=== PATIENT | male | born 1970 | race African-American/Black ===

== ENCOUNTER 2016-10-19 13:29 | Emergency (ER) | payer OTHER ==
[2016-10-19 13:57] VITALS: BP 151/97; PULSE 111; TEMP 98.1; BMI 33.7
[2016-10-19] MEDS ORDERED: KETOROLAC TROMETHAMINE 60 MG/2 ML VIAL IM ONE (14:58)
[2016-10-19] MEDS ORDERED: diazePAM 5 MG TABLET PO ONE (14:59)
[2016-10-19] MEDS ORDERED: KETOROLAC TROMETHAMINE 60 MG/2 ML VIAL ONE (15:03)
[2016-10-19] MEDS ORDERED: diazePAM 5 MG TABLET ONE (15:03)
[2016-10-19 15:29] LABS: BASOPHIL 1.2 % (0-2.0); EOSINOPHIL 3.1 % (0-4.5); MCH 29.9 pg (25.7-33.7); MCHC 33.3 g/dl (32.0-35.9); MEAN PLT VOLUME 10.1 fl (7.5-11.1); NEUTROPHILS 54.1 % (42.8-82.8); PLATELET COUNT 259 K/MM3 (134-434); RDW 13.2 % (11.9-15.9); WHITE BLOOD COUNT 11.3 K/mm3 (4.0-10.0)
[2016-10-19 15:51] LABS: CALCIUM 9.4 mg/dL (8.5-10.1); CREATININE 0.9 mg/dL (0.7-1.3)
[2016-10-19 15:57] LABS: URINE APPEARANCE CLEAR; URINE BILIRUBIN NEGATIVE (NEGATIVE); URINE BLOOD NEGATIVE (NEGATIVE); URINE COLOR LTYELLOW; URINE GLUCOSE (UA) 3+ (NEGATIVE); URINE KETONE TRACE (NEGATIVE); URINE LEUK ESTERASE NEGATIVE (NEGATIVE); URINE NITRITE NEGATIVE (NEGATIVE); URINE PROTEIN NEGATIVE (NEGATIVE); URINE UROBILINOGEN NEGATIVE E.U./dl (0.2-1.0)
[2016-10-19 16:12] LABS: PLATELET ESTIMATE ADEQUATE (NORMAL)
[2016-10-19] MEDS ORDERED: OXYCODONE/APAP 5/325MG COMBO TABLET PO ONE (16:52)
[2016-10-19] MEDS ORDERED: OXYCODONE/APAP 5/325MG COMBO TABLET ONE (16:58)
--- NOTE | 2016-10-19 17:15 | PDOC ---
History of Present Illness - General Chief Complaint: Back Pain Stated Complaint: BACK PAIN Time Seen by Provider: 10/19/16 14:05 History Source: Patient Exam Limitations: No Limitations - History of Present Illness Occurred: reports: last week Severity: reports: severe Pain Location: reports: back. denies: lower extremity, pelvis Method of Injury: Yes: other (NO TRAUMA) Past History - Past Medical History Allergies/Adverse Reactions: Allergies Allergy/AdvReac Type Severity Reaction Status Date / Time No Known Allergies Allergy Verified 10/19/16 13:44 Home Medications: Ambulatory Orders Enalapril Maleate [Vasotec -] 10 mg PO DAILY 10/06/14 Glyburide/Metformin HCl [Glyburide-Metformin 5-500 mg] 1 each PO BID 10/06/14 Simvastatin [Zocor -] 20 mg PO HS 10/06/14 Albuterol Sulfate Inhaler - [Ventolin HFA Inhaler -] 1 - 2 inh PO Q4H PRN Acetaminophen W/ Codeine #3 [Tylenol # 3 -] 1 tab PO Q6H #20 tablet 06/11/15 Insulin Glargine,Hum.rec.anlog [Lantus Solostar PEN -] 35 units 10/19/16 Diabetes: Yes HTN: Yes Hypercholesterolemia: Yes - Psycho/Social/Smoking Cessation Hx Anxiety: No Suicidal Ideation: No Smoking History: Current every day smoker Have you smoked in the past 12 months: Yes Number of Cigarettes Smoked Daily: 15 Information on smoking cessation initiated: No 'Breaking Loose' booklet given: 06/09/15 Hx Alcohol Use: No Drug/Substance Use Hx: No Substance Use Type: None Review of Systems - Review of Systems Constitutional: No: Chills, Fever, Malaise Respiratory: No: Symptoms reported, Cough Cardiac (ROS): No: Symptoms Reported ABD/GI: No: Symptoms Reported : No: Symptoms Reported Musculoskeletal: No: Symptoms Reported Integumentary: No: Symptoms Reported Neurological: No: Symptoms reported, Numbness, Paresthesia *Physical Exam - Vital Signs Last Vital Signs Temp Pulse Resp BP Pulse Ox 98.1 F 111 H 19 151/97 96 10/19/16 13:45 10/19/16 13:45 10/19/16 13:45 10/19/16 13:45 10/19/16 13:45 - Physical Exam General Appearance: Yes: Appropriately Dressed HEENT: negative: TMs Normal, Pharynx Normal Neck: negative: Tender, Rigid, Supple, Lymphadenopathy (R), Lymphadenopathy (L) Respiratory/Chest: positive: Lungs Clear Cardiovascular: negative: Regular Rhythm, Regular Rate, Murmur Musculoskeletal: positive: Other ( TENDER TO AREA OF L4-L5) Extremity: negative: Normal Capillary Refill Integumentary: negative: Normal Color, Dry, Warm ED Treatment Course - LABORATORY CBC & Chemistry Diagram: 10/19/16 15:10 10/19/16 15:10 - ADDITIONAL ORDERS Additional order review: Laboratory Results 10/19/16 10/19/16 15:10 15:10 Sodium 136 Potassium 4.3 Chloride 102 Carbon Dioxide 26 Anion Gap 8 BUN 14 D Creatinine 0.9 D Random Glucose 241 H Calcium 9.4 Urine Color Ltyellow Urine Appearance Clear Urine pH 5.0 Ur Specific [place] 1.032 Urine Protein Negative Urine Glucose (UA) 3+ H Urine Ketones Trace H Urine Blood Negative Urine Nitrite Negative Urine Bilirubin Negative Urine Urobilinogen Negative Ur Leukocyte Esterase Negative 10/19/16 15:10 RBC 5.67 H MCV 90.0 MCHC 33.3 RDW 13.2 MPV 10.1 Neutrophils % 54.1 Lymphocytes % 33.0 D Monocytes % 8.6 Eosinophils % 3.1 Basophils % 1.2 - Medications Given in the ED: ED Medications Discontinued Medications Generic Name Dose Route Start Last Admin Trade Name Freq PRN Reason Stop Dose Admin Diazepam 5 mg 10/19/16 14:59 10/19/16 15:06 Valium - PO 10/19/16 15:00 5 mg ONCE ONE Administration Ketorolac Tromethamine 60 mg 10/19/16 14:58 10/19/16 15:06 Toradol Injection - IM 10/19/16 14:59 60 mg ONCE ONE Administration Oxycodone/Acetaminophen 2 combo 10/19/16 16:52 10/19/16 16:57 Percocet 5/325 - PO 10/19/16 16:53 2 combo ONCE ONE Administration Medical Decision Making - Medical Decision Making 10/19/16 17:13 SLIGHT BETTER POST TORADOL, VALIUM AND PERCOCET IN ED; WILL REFER TO ORTHO FOR CLOSE FOLLOW UP 10 DAYS *DC/Admit/Observation/Transfer Diagnosis at time of Disposition: Hyperglycemia due to type 2 diabetes mellitus Qualifiers: Diabetes mellitus fci insulin use: unspecified intermediate school teacher insulin use status Qualified Code(s): E11.65 - Type 2 diabetes mellitus with hyperglycemia Low back pain Qualifiers: Chronicity: acute Back pain laterality: unspecified Sciatica presence: without sciatica Qualified Code(s): M54.5 - Low back pain - Discharge Dispostion Disposition: HOME Condition at time of disposition: Stable Admit: No - Referrals Referrals: María Kimble MD [Primary Care Provider] - Seth Bernal MD [Staff Physician] - - Patient Instructions Additional Instructions: PLEASE FOLLOW UP WITH DR SIMON FOR BACK PAIN AND GLUCOSE CONTROL, YOU MAY NEED AN MRI - Post Discharge Activity Work/School Note: Back to Work
== END 2016-10-19 17:56 | disposition home or self-care (01) ==
LOC: JER 13:29 → JERFT 13:29
PROC: 3E0333Z Introduction of Anti-inflammatory into Peripheral Vein, Percutaneous Approach (ICD-10-PCS; principal; 2016-10-19)
DX: M54.5 Low back pain (principal); E11.65 Type 2 diabetes mellitus with hyperglycemia; Z79.4 Long term (current) use of insulin; Z79.84 Long term (current) use of oral hypoglycemic drugs; I10 Essential (primary) hypertension; E78.00 Pure hypercholesterolemia, unspecified
CPT/HCPCS: 36415; 80048; 81003; 85025; 96374; 99281-25

== ENCOUNTER 2016-10-25 16:13 | Emergency (ER) | payer OTHER ==
[2016-10-25] MEDS ORDERED: diazePAM CARPU-JECT 10 MG/2 ML DISP.SYRIN IVPUSH ONE (16:38)
[2016-10-25] MEDS ORDERED: KETOROLAC TROMETHAMINE 30 MG/1 ML VIAL IVPUSH ONE (16:38)
[2016-10-25] MEDS ORDERED: KETOROLAC TROMETHAMINE 30 MG/1 ML VIAL ONE (16:38)
[2016-10-25] MEDS ORDERED: diazePAM CARPU-JECT 10 MG/2 ML DISP.SYRIN ONE (16:38)
--- NOTE | 2016-10-25 16:38 | PDOC ---
History of Present Illness - General History Source: Patient, EMS, Old Records Exam Limitations: No Limitations - History of Present Illness Initial Comments: 10/25/16 16:57 The patient is a 46 year old male, with a significant past medical history of asthma, HTN, hyperlipidemia and diabetes, who presents to the emergency department via EMS with intermittent radiating left sided back pain for the past 2-3 weeks. The patient describes his back pain as sharp and reports that the pain intermittently radiates down his left leg. He reports that the back pain is exacerbated by any movement (sitting/standing/walking). The patient most recently visited this ED on 10/19/2016 for similar symptoms. The patient was given Toradol, Valium and Percocet for his back pain, with some relief. The patient was discharged home on pain medication and advised to follow up with orthopedics for possible outpatient imaging, but has not yet done so. The patient presents to the ED today because his back pain is persistent. The patient denies any trauma to the area or any recent heavy lifting. The patient denies fever, chills, nausea, vomiting, diarrhea, dysuria or any changes in urination. 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 The patient did not take his regular medications today. Allergies: None reported. Past Surgical History: None reported. Social History: Current everyday smoker (1 pack/2 days). Denies alcohol use. Reports marijuana use. PCP: Dr. Kimble <Sharon Patel - Last Filed: 10/25/16 19:46> - General History Source: Patient, EMS, Old Records Exam Limitations: No Limitations <Mary Block - Last Filed: 10/25/16 21:56> - General Chief Complaint: Back Pain Stated Complaint: SEVERE BACK PAIN Time Seen by Provider: 10/25/16 16:19 Past History <Sharon Patel - Last Filed: 10/25/16 19:46> - Past Medical History Diabetes: Yes HTN: Yes Hypercholesterolemia: Yes - Psycho/Social/Smoking Cessation Hx Anxiety: No Suicidal Ideation: No Smoking History: Current every day smoker Have you smoked in the past 12 months: Yes Number of Cigarettes Smoked Daily: 20 'Breaking Loose' booklet given: 06/09/15 Hx Alcohol Use: No Drug/Substance Use Hx: No Substance Use Type: None <Mary Block - Last Filed: 10/25/16 21:56> - Past Medical History Allergies/Adverse Reactions: Allergies Allergy/AdvReac Type Severity Reaction Status Date / Time No Known Allergies Allergy Verified 10/19/16 13:44 Home Medications: Ambulatory Orders Amlodipine Besylate [Norvasc -] 5 mg PO DAILY 10/25/16 Benazepril HCl 10 mg PO DAILY 10/25/16 Diazepam [Valium] 5 mg PO Q6H PRN #10 tablet MDD 4 10/25/16 Glyburide [Diabeta -] 5 mg PO DAILY@0700 10/25/16 Ibuprofen 800 mg PO TID 10/25/16 Insulin Glargine,Hum.rec.anlog [Lantus Solostar PEN (NF)] 0 units SQ HS Lidocaine 5% Patch [Lidoderm Patch -] 1 patch TP DAILY #7 patch 10/25/16 Linagliptin [Tradjenta] 5 mg PO DAILY 10/25/16 Oxycodone HCl/Acetaminophen [Percocet 5-325 mg Tablet] 1 tab PO Q6H 10/25/16 Simvastatin [Zocor -] 20 mg PO DAILY 10/25/16 Tizanidine HCl [Zanaflex] 4 mg PO TID 10/25/16 Review of Systems - Review of Systems Able to Perform ROS?: Yes Comments:: 10/25/16 16:58 GENERAL/CONSTITUTIONAL: No fever or chills. No weakness. HEAD, EYES, EARS, NOSE AND THROAT: No change in vision. No ear pain or discharge. No sore throat. CARDIOVASCULAR: No chest pain or shortness of breath. RESPIRATORY: No cough, wheezing, or hemoptysis. GASTROINTESTINAL: No nausea, vomiting, diarrhea or constipation. GENITOURINARY: No dysuria, frequency, or change in urination. MUSCULOSKELETAL: +Back pain, left leg pain. No joint swelling or pain. No neck pain. SKIN: No rash. NEUROLOGIC: No headache, vertigo, loss of consciousness, or change in strength/ sensation. ENDOCRINE: No increased thirst. No abnormal weight change. HEMATOLOGIC/LYMPHATIC: No anemia, easy bleeding, or history of blood clots. ALLERGIC/IMMUNOLOGIC: No hives or skin allergy. <Sharon Patel - Last Filed: 10/25/16 19:46> *Physical Exam - Vital Signs Last Vital Signs Temp Pulse Resp BP Pulse Ox 0/0 10/25/16 16:39 - Physical Exam Comments: 10/25/16 16:58 GENERAL: Awake, alert, and fully oriented, in no acute distress. HEAD: No signs of trauma. EYES: PERRLA, EOMI, sclera anicteric, conjunctiva clear. ENT: Auricles normal inspection, hearing grossly normal, nares patent, oropharynx clear without exudates. Moist mucosa. NECK: Normal ROM, supple, no lymphadenopathy, JVD, or masses. LUNGS: Breath sounds equal, clear to auscultation bilaterally. No wheezes, and no crackles. HEART: Regular rate and rhythm, normal S1 and S2, no murmurs, rubs or gallops. ABDOMEN: Soft, nontender, normoactive bowel sounds. No guarding, no rebound. No masses. MUSCULOSKELETAL: Point tenderness of the left lower lumbar sacral region. No spinal tenderness, no vertebral tenderness. EXTREMITIES: Normal range of motion, no edema. No clubbing or cyanosis. No cords, erythema, or tenderness. NEUROLOGICAL: Cranial nerves II through XII grossly intact. Normal speech, gait is deferred. SKIN: Warm, dry, normal turgor, no rashes or lesions noted. <Sharon Patel - Last Filed: 10/25/16 19:46> ED Treatment Course - LABORATORY CBC & Chemistry Diagram: 10/25/16 16:53 10/25/16 16:53 <Sharon Patel - Last Filed: 10/25/16 19:46> - LABORATORY CBC & Chemistry Diagram: 10/25/16 16:53 10/25/16 16:53 <Mary Block - Last Filed: 10/25/16 21:56> Medical Decision Making - Medical Decision Making 10/25/16 16:42 [id number] with history of hypertension, diabetes, asthma and high cholesterol who presents to the emergency department with progressively worsening lower back pain 2-1/2 weeks.differential diagnosiincludes but is not limited to: Sciatica, muscle spasm, disc herniation, nerve impingement, uncontrolled diabetes. Plan: 1. IV Valium and Toradol 2. Check labs 3. Observe and reevaluate <Mary Block - Last Filed: 10/25/16 21:56> *DC/Admit/Observation/Transfer - Attestations Scribe Attestion: 10/25/16 16:56 Documentation prepared by Sharon Patel, acting as medical claims representative for Mary Block MD. <Sharon Patel - Last Filed: 10/25/16 19:46> - Discharge Dispostion Admit: No - Attestations Physician Attestion: 10/25/16 16:44 I, Dr. Mary Block, attest that the scribes documentation that appears above has been prepared under my direction and personally reviewed by me in its entirety. I confirmed that the note above accurately reflects all work, treatment, procedures, and medical decision-making performed by me. <Mary Block - Last Filed: 10/25/16 21:56> Diagnosis at time of Disposition: Pain in lower back - Discharge Dispostion Disposition: HOME Condition at time of disposition: Stable - Prescriptions Prescriptions: Lidocaine 5% Patch [Lidoderm Patch -] 1 patch TP DAILY #7 patch Diazepam [Valium] 5 mg PO Q6H PRN #10 tablet MDD 4 PRN Reason: Pain - Referrals Referrals: María Kimble MD [Primary Care Provider] - - Patient Instructions Printed Discharge Instructions: DI for Low Back Pain Additional Instructions: You're being prescribed Lidoderm patch and Valium. Take 1 tablet of the Valium every 6 hours as needed for severe pain. Continue to need to take Percocet or Motrin as needed for pain as well. Follow-up with your primary care physician on Thursday. Return to the emergency department if her symptoms persist, worsen, or new symptoms arise.
[2016-10-25 16:42] VITALS: BMI 33.6
[2016-10-25 16:59] LABS: BASOPHIL 0.6 % (0-2.0); EOSINOPHIL 1.3 % (0-4.5); MCHC 33.5 g/dl (32.0-35.9); MEAN CELL VOLUME 89.5 fl (80-96); MEAN PLT VOLUME 9.6 fl (7.5-11.1); PLATELET COUNT 233 K/MM3 (134-434); RDW 13.3 % (11.9-15.9); WHITE BLOOD COUNT 11.1 K/mm3 (4.0-10.0)
[2016-10-25 17:32] VITALS: BP 124/74; PULSE 82; TEMP 98
[2016-10-25 17:47] LABS: ANION GAP 11 (8-16); CALCIUM 8.9 mg/dL (8.5-10.1); CO2 26 mmol/L (21-32); GLUCOSE,RANDOM 268 mg/dL (74-106); MAGNESIUM 1.8 mg/dL (1.8-2.4); PHOSPHOROUS 2.4 mg/dL (2.5-4.9)
[2016-10-25 18:46] LABS: ACETONE SERUM NEGATIVE (NEGATIVE)
[2016-10-25 19:51] LABS: URINE APPEARANCE CLEAR; URINE BILIRUBIN NEGATIVE (NEGATIVE); URINE BLOOD NEGATIVE (NEGATIVE); URINE COLOR LTYELLOW; URINE GLUCOSE (UA) 3+ (NEGATIVE); URINE KETONE NEGATIVE (NEGATIVE); URINE LEUK ESTERASE NEGATIVE (NEGATIVE); URINE NITRITE NEGATIVE (NEGATIVE); URINE PROTEIN NEGATIVE (NEGATIVE); URINE UROBILINOGEN NEGATIVE E.U./dl (0.2-1.0)
[2016-10-25] MEDS ORDERED: KETOROLAC TROMETHAMINE 60 MG/2 ML VIAL IM ONE (22:25)
[2016-10-25] MEDS ORDERED: KETOROLAC TROMETHAMINE 60 MG/2 ML VIAL ONE (22:26)
== END 2016-10-25 22:43 | disposition home or self-care (01) ==
LOC: JER 16:13
PROC: 3E0233Z Introduction of Anti-inflammatory into Muscle, Percutaneous Approach (ICD-10-PCS; principal; 2016-10-25)
PROC: 3E033NZ Introduction of Analgesics, Hypnotics, Sedatives into Peripheral Vein, Percutaneous Approach (ICD-10-PCS; 2016-10-25)
PROC: 3E0333Z Introduction of Anti-inflammatory into Peripheral Vein, Percutaneous Approach (ICD-10-PCS; 2016-10-25)
DX: M54.5 Low back pain (principal); I10 Essential (primary) hypertension; E11.9 Type 2 diabetes mellitus without complications; Z79.4 Long term (current) use of insulin; Z79.84 Long term (current) use of oral hypoglycemic drugs; E78.00 Pure hypercholesterolemia, unspecified; J45.909 Unspecified asthma, uncomplicated
CPT/HCPCS: 36415; 80048; 81003; 82009; 83735; 84100; 85025; 96372; 96374; 96375; 99283-25

== ENCOUNTER 2017-10-08 10:18 | Inpatient (IN) | payer OTHER ==
[2017-10-08] MEDS ORDERED: VANCOMYCIN 1,000 MG in DEXTROSE 5%-WATER - 250 ML IVPB ONE (11:49)
[2017-10-08] MEDS ORDERED: PIPERACILLIN/TAZOB 4.5 GM 4.5 GM/100 ML BAG IVPB ONE ×2 (11:49→12:08)
[2017-10-08] MEDS ORDERED: VANCOMYCIN 1 GRAM (PRE-DOCKED) 1,000 MG/250 ML BAG IVPB ONE ×2 (12:08)
--- NOTE | 2017-10-08 12:17 | PDOC ---
History of Present Illness - General History Source: Patient Exam Limitations: No Limitations - History of Present Illness Initial Comments: 10/08/17 12:43 The patient is a 47 year old male, with a significant past medical history of Asthma, DM, HTN, HLD who presents to the emergency department for evaluation of L toe infection. Patient reports cutting his toenails few days ago and since then has been noticing purulent drainage and foul smell to the greater L toe. Patient reports recent fluctuations in blood sugars (75-300s). Patient went to clinic today and was sent in for further evaluation of his wound. Patient denies any pain, trauma or injury to the toe. Patient denies fever, chills, Patient denies chest pain, headache or dizziness. Patient denies abdominal pain, nausea, vomit, diarrhea or constipation. Patient denies dysuria, frequency, urgency or hematuria. Patient denies sick contacts or recent travel. Allergies: Metformin Past surgical history: None Social history: None PCP: Dr. Kimble <Paulina Jj - Last Filed: 10/08/17 12:43> <Billy Grande - Last Filed: 10/08/17 14:09> - General Chief Complaint: Wound Infection Stated Complaint: INFECTED LT TOE Time Seen by Provider: 10/08/17 11:32 Past History <Paulina Jj - Last Filed: 10/08/17 12:43> - Past Medical History COPD: No DVT: No Diabetes: Yes HTN: Yes Hypercholesterolemia: Yes - Suicide/Smoking/Psychosocial Hx Smoking History: Current every day smoker Have you smoked in the past 12 months: Yes Number of Cigarettes Smoked Daily: 10 Information on smoking cessation initiated: Yes 'Breaking Loose' booklet given: 10/08/17 Hx Alcohol Use: No Drug/Substance Use Hx: No Substance Use Type: None <Billy Grande - Last Filed: 10/08/17 14:09> - Past Medical History Allergies/Adverse Reactions: Allergies Allergy/AdvReac Type Severity Reaction Status Date / Time metformin AdvReac Verified 10/08/17 10:21 Home Medications: Ambulatory Orders Amlodipine Besylate [Norvasc -] 5 mg PO DAILY 10/25/16 Benazepril HCl 10 mg PO DAILY 10/25/16 Diazepam [Valium] 5 mg PO Q6H PRN #10 tablet MDD 4 10/25/16 Glyburide [Diabeta -] 5 mg PO DAILY@0700 10/25/16 Ibuprofen 800 mg PO TID 10/25/16 Insulin Glargine,Hum.rec.anlog [Lantus Solostar PEN (NF)] 0 units SQ HS Lidocaine 5% Patch [Lidoderm Patch -] 1 patch TP DAILY #7 patch 10/25/16 Linagliptin [Tradjenta] 5 mg PO DAILY 10/25/16 Oxycodone HCl/Acetaminophen [Percocet 5-325 mg Tablet] 1 tab PO Q6H 10/25/16 Simvastatin [Zocor -] 20 mg PO DAILY 10/25/16 Tizanidine HCl [Zanaflex] 4 mg PO TID 10/25/16 Review of Systems - Review of Systems Constitutional: No: Chills, Fever Respiratory: No: Cough, Shortness of Breath Cardiac (ROS): No: Chest Pain Musculoskeletal: Yes: Joint Pain, Muscle Pain Integumentary: Yes: See HPI Neurological: No: Tingling, Weakness All Other Systems: Reviewed and Negative <Billy Grande - Last Filed: 10/08/17 14:09> *Physical Exam - Vital Signs Last Vital Signs Temp Pulse Resp BP Pulse Ox 98.4 F 106 H 18 126/85 100 10/08/17 10:22 10/08/17 10:22 10/08/17 10:22 10/08/17 10:22 10/08/17 10:22 - Physical Exam Comments: 10/08/17 12:43 GENERAL: The patient is awake, alert, and fully oriented, in no acute distress. HEAD: Normal with no signs of trauma. EYES: Pupils equal, round and reactive to light, extraocular movements intact, sclera anicteric, conjunctiva clear with no pallor. ENT: Ears normal, nares patent, oropharynx clear without exudates. Moist mucous membranes. NECK: Normal range of motion, supple without lymphadenopathy, JVD, or masses. LUNGS: Breath sounds equal, clear to auscultation bilaterally. No wheeze/ crackles. HEART: Regular rate and rhythm, normal S1 and S2 without murmur or rub. ABDOMEN: Soft/nontender/nondistended. BS wnl. No guarding or rebound. No palpable masses. No hepatosplenomegaly. EXTREMITIES: Normal range of motion, no edema. No clubbing or cyanosis. No cords, erythema, or tenderness. NEUROLOGICAL: Cranial nerves II through XII grossly intact. Normal speech, normal gait. PSYCH: Normal mood, normal affect. SKIN: +Soft tissue swelling and almost complete desquamation of L great toe with erythema and warmth. +Tracking cellulitis along medial and dorsal aspect of L foot extending to ankle. Otherwise 2+ distal pulses, no crepitus. +No active bleeding or pus. Warm, Dry, normal turgor, no rashes or lesions noted. <Paulina Jj - Last Filed: 10/08/17 12:43> - Vital Signs Last Vital Signs Temp Pulse Resp BP Pulse Ox 98.4 F 106 H 18 126/85 100 10/08/17 10:22 10/08/17 10:22 10/08/17 10:22 10/08/17 10:22 10/08/17 10:22 <Billy Grande - Last Filed: 10/08/17 14:09> Heart Score/ECG Review #1 ECG reviewed & interpreted by me at: 13:35 General ECG Interpretation: Sinus Rhythm, Normal Rate (95), Normal Intervals ( qtc 464, RBBB), No acute ischemic changes Compared to previous ECG there are: No significant change <Billy Grande - Last Filed: 10/08/17 14:09> ED Treatment Course - LABORATORY CBC & Chemistry Diagram: 10/08/17 12:15 10/08/17 12:15 - ADDITIONAL ORDERS Additional order review: Laboratory Results 10/08/17 12:15 VBG pH 7.41 POC VBG pCO2 43.1 POC VBG pO2 50.5 H Mixed VBG HCO3 26.8 H 10/08/17 12:15 RBC 5.42 MCV 91.5 MCHC 33.0 RDW 13.2 MPV 9.3 Neutrophils % 61.9 Lymphocytes % 23.7 Monocytes % 10.0 Eosinophils % 3.2 D Basophils % 1.2 - Medications Given in the ED: ED Medications Discontinued Medications Generic Name Dose Route Start Last Admin Trade Name Freq PRN Reason Stop Dose Admin Piperacillin/Tazobactam/Dextrose 4.5 gm in 100 mls @ 200 mls/hr 10/08/17 11: 49 10/08/17 12:29 Zosyn 4.5gm Ivpb (Premix) IVPB 10/08/17 12:18 200 mls/hr ONCE ONE Administration Protocol <Paulina Jj - Last Filed: 10/08/17 12:43> - LABORATORY CBC & Chemistry Diagram: 10/08/17 12:15 10/08/17 12:15 - RADIOLOGY Radiology Studies Ordered: Category Date Time Status FOOT-LEFT [RAD] Stat Radiology 10/08/17 11:49 Ordered <Billy Grande - Last Filed: 10/08/17 14:09> Medical Decision Making - Medical Decision Making 10/08/17 12:01 A portion of this note was documented by scribe services under my direction. I have reviewed the details of the note, within reason, and agree with the documentation with the following case summary and management plan written by me. 47-year-old male with history of diabetes off medications for some time secondary to loss of insurance, now sent from [facility] where he was looking to reestablish care for further evaluation of left great toe swelling and purulence over the last few days. Patient initially noted thickening and elevation of his toenail, followed over the last few by swelling, redness, and pus discharge. no pain or fever/chills, has noted elevated glucose in the setting of medication noncompliance, particularly over the last week. Afebrile. Well-appearing. Left foot: Edematous, erythematous, nontender left great toe with dislodged nail and onychomycosis, no active purulence or bleeding but there is tracking cellulitis dorsally and medially to the left ankle. Full range of motion, peripheral pulses are easily palpable. 47-year-old male uncontrolled diabetic presents with left great toe infection, possible gangrenous tissue. No systemic symptoms, no palpable crepitus or signs of necrotizing fasciitis. Sepsis protocol initiated IV antibiotics Left foot x-ray Will likely need admission for IV antibiotics and surgical evaluation for debridement 10/08/17 13:56 No leukocytosis, normal differential. Chemistries are within normal limits. Received antibiotics, awaiting x-ray read, proceed with admission 10/08/17 14:08 Accepted for inpatient med.surg by Dr. Houston, signout given to ERICK Ibrahim. <Billy Grande - Last Filed: 10/08/17 14:09> *DC/Admit/Observation/Transfer - Attestations Scribe Attestion: 10/08/17 12:44 Documentation prepared by Paulina Jj, acting as medical claims processor for Billy Grande MD <Paulina Jj - Last Filed: 10/08/17 12:43> - Discharge Dispostion Admit: Yes <Billy Grande - Last Filed: 10/08/17 14:09> Diagnosis at time of Disposition: Diabetic foot infection - Discharge Dispostion Condition at time of disposition: Fair - Referrals Referrals: María Kimble MD [Primary Care Provider] -
[2017-10-08 12:30] LABS: BASO % 1.2 % (0-2.0); EOS % 3.2 % (0-4.5); HEMATOCRIT 49.6 % (35.4-49); HEMOGLOBIN 16.4 GM/dL (11.7-16.9); LYMPH % 23.7 % (8-40); MCH 30.2 pg (25.7-33.7); MEAN CELL VOLUME 91.5 fl (80-96); MEAN PLT VOLUME 9.3 fl (7.5-11.1); NEUT % 61.9 % (42.8-82.8); PLATELET COUNT 232 K/MM3 (134-434); RBC 5.42 M/mm3 (4.00-5.60); RDW 13.2 % (11.9-15.9); WHITE BLOOD COUNT 9.5 K/mm3 (4.0-10.0)
[2017-10-08 12:37] LABS: VENOUS PC02 43.1 mmHg (38-52); VENOUS PH 7.41 (7.32-7.42); VENOUS PO2 50.5 mmHg (28-48)
[2017-10-08 12:42] LABS: INR 1.19 (0.82-1.09); PROTHROMBIN TIME (PATIENT) 13.4 SEC (9.98-11.88)
[2017-10-08 13:26] LABS: ALBUMIN 3.7 g/dl (3.4-5.0); ANION GAP 10 (8-16); BLOOD UREA NITROGEN 13 mg/dL (7-18); CALCIUM 8.9 mg/dL (8.5-10.1); CHLORIDE 103 mmol/L (98-107); CO2 26 mmol/L (21-32); CREATININE 0.9 mg/dL (0.7-1.3); GLUCOSE,RANDOM 210 mg/dL (74-106); POTASSIUM 4.1 mmol/L (3.5-5.1); SGOT/AST 11 U/L (15-37); SGPT/ALT 23 U/L (12-78); SODIUM 139 mmol/L (136-145)
[2017-10-08 13:28] LABS: ALK PHOS 88 U/L (45-117); BILIRUBIN,TOTAL 0.8 mg/dL (0.2-1.0)
[2017-10-08 14:13] LABS: URINE APPEARANCE CLOUDY; URINE BILIRUBIN NEGATIVE (NEGATIVE); URINE BLOOD NEGATIVE (NEGATIVE); URINE COLOR LTYELLOW; URINE GLUCOSE (UA) 3+ (NEGATIVE); URINE KETONE NEGATIVE (NEGATIVE); URINE NITRITE NEGATIVE (NEGATIVE); URINE PROTEIN NEGATIVE (NEGATIVE); URINE UROBILINOGEN NEGATIVE mg/dL (0.2-1.0)
[2017-10-08 14:19] LABS: URINE LEUK ESTERASE 2+ (NEGATIVE)
[2017-10-08 14:36] LABS: EPI CELLS RARE /HPF (FEW)
--- NOTE | 2017-10-08 14:53 | EKG ---
Test Reason : Blood Pressure : / mmHG Vent. Rate : 095 BPM Atrial Rate : 095 BPM P-R Int : 144 ms QRS Dur : 124 ms QT Int : 370 ms P-R-T Axes : 062 -49 039 degrees QTc Int : 464 ms NORMAL SINUS RHYTHM RIGHT BUNDLE BRANCH BLOCK LEFT ANTERIOR FASCICULAR BLOCK BIFASCICULAR BLOCK ABNORMAL ECG WHEN COMPARED WITH ECG OF 08-JUN-2015 19:58, QRS DURATION HAS DECREASED Confirmed by ALEJANDRA ZAMUDIO MD ([id number]) on 10/08/2017 2:53:14 PM Referred By: Confirmed By:ALEJANDRA ZAMUDIO MD
--- NOTE | 2017-10-08 17:04 | HP ---
CHIEF COMPLAINT: Left great toe pain PCP: Dr. Stevenson HISTORY OF PRESENT ILLNESS: 44 year-old male with a PMH significant for HTN, HLD, asthma, poorly-controlled diabetes, and scrotal cellulitis. A few days ago patient cut his toenails. He noticed thickening and elevation of his left great toe nail, followed by swelling, redness, and pus discharge. Patient went to the [facility] clinic today and he was referred to the ED. Patient has noticed recent fluctuations in his blood sugars (75s-300s). He has been off his diabetic medications for some time due to insurance issues. Patient denies any pain, trauma or injury to the toe. Patient denies fever, sweats, chills. ER course was notable for: (1) Afebrile, no leukocytosis (2) Xray negative for fracture, negative for osteo (3) Vanc x 1; Zosyn x 1 Recent Travel: No PAST MEDICAL HISTORY: Hypertension Hyperlipidemia Asthma NIDDM Scrotal cellulitis (2014, Group B strep) PAST SURGICAL HISTORY: None reported Social History: Lives with spouse Smoking: current every day smoker Alcohol: no Drugs: marijuana Family History: Allergies metformin Adverse Reaction (Verified 10/08/17 10:21) HOME MEDICATIONS: Home Medications Medication Instructions Recorded Amlodipine Besylate [Norvasc -] 5 mg PO DAILY 10/25/16 Benazepril HCl 10 mg PO DAILY 10/25/16 Diazepam [Valium] 5 mg PO Q6H PRN #10 tablet MDD 4 10/25/16 Glyburide [Diabeta -] 5 mg PO DAILY@0700 10/25/16 Ibuprofen 800 mg PO TID 10/25/16 Insulin Glargine,Hum.rec.anlog 0 units SQ HS 10/25/16 [Lantus Solostar PEN (NF)] Lidocaine 5% Patch [Lidoderm Patch 1 patch TP DAILY #7 patch 10/25/16 -] Linagliptin [Tradjenta] 5 mg PO DAILY 10/25/16 Oxycodone HCl/Acetaminophen 1 tab PO Q6H 10/25/16 [Percocet 5-325 mg Tablet] Simvastatin [Zocor -] 20 mg PO DAILY 10/25/16 Tizanidine HCl [Zanaflex] 4 mg PO TID 10/25/16 REVIEW OF SYSTEMS CONSTITUTIONAL: Absent: fever, chills, diaphoresis, generalized weakness, malaise, loss of appetite, weight change HEENT: Absent: rhinorrhea, nasal congestion, throat pain, throat swelling, difficulty swallowing, mouth swelling, ear pain, eye pain, visual changes CARDIOVASCULAR: Absent: chest pain, syncope, palpitations, irregular heart rate, lightheadedness , peripheral edema RESPIRATORY: Absent: cough, shortness of breath, dyspnea with exertion, orthopnea, wheezing, stridor, hemoptysis GASTROINTESTINAL: Absent: abdominal pain, abdominal distension, nausea, vomiting, diarrhea, constipation, melena, hematochezia GENITOURINARY: Absent: dysuria, frequency, urgency, hesitancy, hematuria, flank pain, genital pain MUSCULOSKELETAL: Absent: myalgia, arthralgia, joint swelling, back pain, neck pain SKIN: Absent: rash, itching, pallor HEMATOLOGIC/IMMUNOLOGIC: Absent: easy bleeding, easy bruising, lymphadenopathy, frequent infections ENDOCRINE: Absent: unexplained weight gain, unexplained weight loss, heat intolerance, cold intolerance NEUROLOGIC: Absent: headache, focal weakness or paresthesias, dizziness, unsteady gait, seizure, mental status changes, bladder or bowel incontinence PSYCHIATRIC: Absent: anxiety, depression, suicidal or homicidal ideation, hallucinations. PHYSICAL EXAMINATION Vital Signs - 24 hr 10/08/17 10:22 Temperature 98.4 F Pulse Rate 106 H Respiratory 18 Rate Blood Pressure 126/85 O2 Sat by Pulse 100 Oximetry (%) GENERAL: Awake, alert, and fully oriented, in no acute distress. HEAD: Normal with no signs of trauma. EYES: Pupils equal, round and reactive to light, extraocular movements intact, sclera anicteric, conjunctiva clear. No lid lag. EARS, NOSE, THROAT: Ears normal, nares patent, oropharynx clear without exudates. Moist mucous membranes. NECK: Normal range of motion, supple without lymphadenopathy, JVD, or masses. LUNGS: Breath sounds equal, clear to auscultation bilaterally. No wheezes, and no crackles. No accessory muscle use. HEART: Regular rate and rhythm, normal S1 and S2 without murmur, rub or gallop. ABDOMEN: Soft, nontender, not distended, normoactive bowel sounds, no guarding, no rebound, no masses. No hepatomegaly or splenomegaly. MUSCULOSKELETAL: Normal range of motion at all joints. No bony deformities or tenderness. No CVA tenderness. UPPER EXTREMITIES: 2+ pulses, warm, well-perfused. No cyanosis. No clubbing. No peripheral edema. LEFT LOWER EXTREMITIES: Edematous, erythematous, left great toe with dislodged nail and onychomycosis, no active bleeding, very mild cellulitis dorsal surface of foot; 2+ pulses, warm, well-perfused, 5/5 sensory NEUROLOGICAL: Cranial nerves II-XII intact. Normal speech. Laboratory Results - last 24 hr 10/08/17 10/08/17 10/08/17 11:48 12:15 12:15 WBC 9.5 RBC 5.42 Hgb 16.4 Hct 49.6 H MCV 91.5 MCH 30.2 MCHC 33.0 RDW 13.2 Plt Count 232 MPV 9.3 Neutrophils % 61.9 Lymphocytes % 23.7 Monocytes % 10.0 Eosinophils % 3.2 D Basophils % 1.2 PT with INR 13.40 H INR 1.19 H PTT (Actin FS) 31.0 VBG pH POC VBG pCO2 POC VBG pO2 Mixed VBG HCO3 Sodium Potassium Chloride Carbon Dioxide Anion Gap BUN Creatinine Creat Clearance w eGFR Random Glucose Lactic Acid Calcium Total Bilirubin AST ALT Alkaline Phosphatase Total Protein Albumin Urine Color Urine Appearance Urine pH Ur Specific [place] Urine Protein Urine Glucose (UA) Urine Ketones Urine Blood Urine Nitrite Urine Bilirubin Urine Urobilinogen Ur Leukocyte Esterase Urine WBC (Auto) Urine RBC (Auto) Ur Epithelial Cells Blood Type O POSITIVE Antibody Screen Negative 10/08/17 10/08/17 10/08/17 12:15 12:15 12:15 WBC RBC Hgb Hct MCV MCH MCHC RDW Plt Count MPV Neutrophils % Lymphocytes % Monocytes % Eosinophils % Basophils % PT with INR INR PTT (Actin FS) VBG pH 7.41 POC VBG pCO2 43.1 POC VBG pO2 50.5 H Mixed VBG HCO3 26.8 H Sodium 139 Potassium 4.1 Chloride 103 Carbon Dioxide 26 Anion Gap 10 BUN 13 D Creatinine 0.9 Creat Clearance w eGFR > 60 Random Glucose 210 H D Lactic Acid 1.2 Calcium 8.9 Total Bilirubin 0.8 D AST 11 L D ALT 23 D Alkaline Phosphatase 88 D Total Protein 7.0 Albumin 3.7 D Urine Color Urine Appearance Urine pH Ur Specific [place] Urine Protein Urine Glucose (UA) Urine Ketones Urine Blood Urine Nitrite Urine Bilirubin Urine Urobilinogen Ur Leukocyte Esterase Urine WBC (Auto) Urine RBC (Auto) Ur Epithelial Cells Blood Type Antibody Screen 10/08/17 14:00 WBC RBC Hgb Hct MCV MCH MCHC RDW Plt Count MPV Neutrophils % Lymphocytes % Monocytes % Eosinophils % Basophils % PT with INR INR PTT (Actin FS) VBG pH POC VBG pCO2 POC VBG pO2 Mixed VBG HCO3 Sodium Potassium Chloride Carbon Dioxide Anion Gap BUN Creatinine Creat Clearance w eGFR Random Glucose Lactic Acid Calcium Total Bilirubin AST ALT Alkaline Phosphatase Total Protein Albumin Urine Color Ltyellow Urine Appearance Cloudy Urine pH 5.0 Ur Specific [place] 1.022 Urine Protein Negative Urine Glucose (UA) 3+ H Urine Ketones Negative Urine Blood Negative Urine Nitrite Negative Urine Bilirubin Negative Urine Urobilinogen Negative Ur Leukocyte Esterase 2+ H Urine WBC (Auto) 12 Urine RBC (Auto) 3 Ur Epithelial Cells Rare Blood Type Antibody Screen ASSESSMENT/PLAN 44 year-old male with a PMH significant for HTN, HLD, asthma, poorly-controlled diabetes, and scrotal cellulitis. Admitted for left great toe infection. Left great toe infection --Vanc (day #1) and Zosyn (day #1) --cultures pending --ID consult requested --podiatry consult requested h/o scrotal cellulitis 2014 --Group B strep Hypertension --BP stable --continue home lisinopril, amlodipine Hyperlipidemia --continue Lipitor NIDDM --Novolog sliding scale coverage --appears to have been non-compliant for years; endocrine consult requestsed Asthma --stable FEN Fluids: PO intake adequate Electrolytes: replete as indicated Nutrition: diabetic diet DVT prophylaxis: lovenox, oob, ambulation Dispo: continues to require inpatient care. Full code. Visit type - Emergency Visit Emergency Visit: Yes ED Registration Date: 10/08/17 Care time: The patient presented to the Emergency Department on the above date and was hospitalized for further evaluation of their emergent condition. - New Patient This patient is new to me today: Yes Date on this admission: 10/09/17 - Critical Care Critical Care patient: No
[2017-10-08 17:23] VITALS: BMI 32.6
--- NOTE | 2017-10-08 17:44 | CON.ID ---
Consult Consult Specialty:: infectious disease Referred by:: hospitalist - History of Present Illness Chief Complaint: big toe infection History of Present Illness: 47 year old man with asthma, DM- he cut his toenail several days ago- the toe became red and swollen and started draining he used peroxide nightly and went to work daily no fever no chills sugars have been up he lost his insurance 2 months back and it has just been reinstated-has been unable to get his meds no history of renal disease no history of eye disease - History Source History Provided By: Patient Limitations to Obtaining History: No Limitations - Past Medical History Cardio/Vascular: Yes: HTN Pulmonary: Yes: Asthma. No: Previously Intubated Endocrine: Yes: Diabetes Mellitus - Past Surgical History Past Surgical History: Yes: None - Alcohol/Substance Use Hx Alcohol Use: No History of Substance Use: reports: None - Smoking History Smoking history: Current every day smoker Have you smoked in the past 12 months: Yes Aproximately how many cigarettes per day: 10 - Social History Usual Living Arrangement: With Spouse ADL: Independent Occupation: works at care home History of Recent Travel: No Home Medications - Allergies Allergies/Adverse Reactions: Allergies Allergy/AdvReac Type Severity Reaction Status Date / Time metformin AdvReac Verified 10/08/17 10:21 - Home Medications Home Medications: Ambulatory Orders Amlodipine Besylate [Norvasc -] 5 mg PO DAILY 10/25/16 Benazepril HCl 10 mg PO DAILY 10/25/16 Glyburide [Diabeta -] 5 mg PO DAILY@0700 10/25/16 Linagliptin [Tradjenta] 5 mg PO DAILY 10/25/16 Simvastatin [Zocor -] 20 mg PO DAILY 10/25/16 Levemir Flextouch 35 units SQ DAILY 10/08/17 Family Disease History - Family Disease History Family History: Denies Review of Systems - Review of Systems Constitutional: reports: No Symptoms. denies: Diaphoresis, Fever Eyes: reports: No Symptoms HENT: reports: No Symptoms Neck: reports: No Symptoms Cardiovascular: reports: No Symptoms. denies: Chest Pain Respiratory: reports: No Symptoms. denies: Cough Gastrointestinal: reports: No Symptoms. denies: Abdominal Pain, Constipation Physical Exam Vital Signs: Vital Signs Temperature 98.4 F 10/08/17 16:32 Pulse Rate 106 H 10/08/17 16:32 Respiratory Rate 17 10/08/17 16:32 Blood Pressure 137/80 10/08/17 16:32 O2 Sat by Pulse Oximetry (%) 100 10/08/17 16:32 Constitutional: Yes: Well Nourished, No Distress, Calm Eyes: Yes: Conjunctiva Clear HENT: Yes: Atraumatic, Normocephalic. No: Thrush Neck: Yes: Supple Cardiovascular: Yes: Regular Rate and Rhythm Respiratory: Yes: Regular, CTA Bilaterally Gastrointestinal: Yes: Normal Bowel Sounds, Soft. No: Tenderness ...Rectal Exam: Yes: Deferred Renal/: Yes: WNL Extremities: Yes: WNL Wound/Incision: Yes: Other (big toe is red and swollen, drainage noted, no exposed bone, entire toe is swollen no streaking to foot or leg) Neurological: Yes: Alert, Oriented Labs: CBC, BMP 10/08/17 12:15 10/08/17 12:15 Imaging - Results X-ray: Report Reviewed Problem List - Problems (1) Diabetic foot infection Code(s): E11.69 - TYPE 2 DIABETES MELLITUS WITH OTHER SPECIFIED COMPLICATION; L08.9 - LOCAL INFECTION OF THE SKIN AND SUBCUTANEOUS TISSUE, UNSP (2) Diabetes Code(s): E11.9 - TYPE 2 DIABETES MELLITUS WITHOUT COMPLICATIONS Qualifiers: Diabetes mellitus type: type 2 (3) Smoker Code(s): F17.200 - NICOTINE DEPENDENCE, UNSPECIFIED, UNCOMPLICATED Assessment/Plan diabetic foot infection- r/o osteo will get mri to r/o osteo vanco/zosyn podiatry consult called f/u blood and wound cultures diabetes-poorly controlled smoking cessation advised
[2017-10-08] MEDS ORDERED: PIPERACILLIN/TAZOB 4.5 GM/100 ML PRE-DOCKED IVPB SCH (17:45)
[2017-10-08] MEDS: PIPERACILLIN/TAZOB 4.5 GM 4.5 GM in DEXTROSE 5%-WATER - 100 ML IVPB SCH (20:19)
[2017-10-08] MEDS: VANCOMYCIN 1,250 MG in DEXTROSE 5%-WATER - 250 ML IVPB SCH (21:06)
[2017-10-08] MEDS: INSULIN SLIDING SCALE (NOVOLOG) 1 VIAL SQ SCH (23:34)
[2017-10-09] MEDS ORDERED: PT OWN MED DRAWER 7, Y5N ONE ×3 (03:08→17:16)
[2017-10-09] MEDS: PIPERACILLIN/TAZOB 4.5 GM 4.5 GM in DEXTROSE 5%-WATER - 100 ML IVPB SCH ×3 (03:11→17:17)
[2017-10-09] MEDS: INSULIN SLIDING SCALE (NOVOLOG) 1 VIAL SQ SCH ×4 (06:19→21:20)
[2017-10-09] MEDS ORDERED: INSULIN DETEMIR 100 UNITS/ML MDV SQ SCH (07:00)
[2017-10-09] MEDS ORDERED: INSULIN SLIDING SCALE (NOVOLOG) 1 VIAL SQ SCH (07:00)
[2017-10-09] MEDS ORDERED: INSULIN (NOVOLOG) ASPART 100 UNITS/ML 10ML VIAL ONE ×3 (07:29→21:11)
[2017-10-09 07:37] LABS: BASO % 0.8 % (0-2.0); EOS % 5.8 % (0-4.5); HEMOGLOBIN 14.8 GM/dL (11.7-16.9); LYMPH % 32.1 % (8-40); MCHC 32.8 g/dl (32.0-35.9); MEAN CELL VOLUME 91.5 fl (80-96); MEAN PLT VOLUME 9.7 fl (7.5-11.1); MONO % 12.2 % (3.8-10.2); NEUT % 49.1 % (42.8-82.8); PLATELET COUNT 216 K/MM3 (134-434); RBC 4.92 M/mm3 (4.00-5.60); RDW 13.1 % (11.9-15.9); WHITE BLOOD COUNT 8.4 K/mm3 (4.0-10.0)
[2017-10-09 08:02] LABS: ANION GAP 8 (8-16); BILIRUBIN,TOTAL 0.9 mg/dL (0.2-1.0); BLOOD UREA NITROGEN 12 mg/dL (7-18); CALCIUM 7.9 mg/dL (8.5-10.1); CHLORIDE 104 mmol/L (98-107); CO2 27 mmol/L (21-32); CREATININE 0.9 mg/dL (0.7-1.3); GLUCOSE,RANDOM 175 mg/dL (74-106); MAGNESIUM 1.9 mg/dL (1.8-2.4); PHOSPHOROUS 4.3 mg/dL (2.5-4.9); POTASSIUM 4.1 mmol/L (3.5-5.1); SGOT/AST 10 U/L (15-37); SGPT/ALT 18 U/L (12-78); SODIUM 139 mmol/L (136-145); TOT PROT 5.8 g/dl (6.4-8.2)
[2017-10-09 08:03] LABS: ALK PHOS 71 U/L (45-117)
--- NOTE | 2017-10-09 08:10 | CONSULT ---
Consult - text type - Consultation Consultation Note: Podiatry Consultation: 47 year old uncontrolled DM male presents for admission to ED for L great toe infection. Patient notes infection developed after trimming toe nails; noticed increased redness/swelling and some drainage from the tip of the toe. Denies F/ V/N/C/SOB/CP. AFebrile, VSS. PMHx: DM, HTN, HLP, asthma Meds: noted ALL: metformin SINA: L foot: pedal pulses palpable, TG wnl, CFT brisk to all toes. There is thickening of the left great toe nail with loosening of the distal half of the nail, malodorous subungual debris, serous draiange, no purulent drainage, no fluctuance, no streaking cellulitis, moderate periwound erythema, no soft tissue crepitus. There is a distal tuft ulcer of the hallux with mixed fibrogranular base, regular borders, no probing to bone, no purulent drainage, no fluctuance, no soft tissue crepitus. WBC: 8.4 ESR: 6 L foot XR: no evidence of destructive process to suggest osteomyelitis L foot MRI: pending Imp: 47 year old DM M with onychomycosis, hallux diabetic ulcer L foot 1. Manual debridement of mycotic nail using nail nipper 2. Excisional debridement L great toe diabetic ulcer to subcutaneous tissue using sterile scissors 3. Rx santyl to L great toe daily 4. WB with surgical shoe 5. F/u MRI 6. If MRI (-), can be discharged and follow up in wound healing center 7. Needs tight glycemic control 8. Thank you for the courtesy of the consult. Blayne Mendez DPM
--- NOTE | 2017-10-09 09:38 | CONSULT ---
Consult Consult Specialty:: Endocrinology Referred by:: Harriet Ibrahim Reason for Consultation:: Hyperglycemia - History of Present Illness Chief Complaint: Left big toe infection History of Present Illness: Mary is a 44 year-old male with h/o HTN, HLD, asthma, poorly-controlled T2DM for about 5 years, on no meds for about 5 months , and scrotal cellulitis who is admitted b/o infection left big toe which started after he cut his toenails. He noticed thickening and elevation of his left great toe nail, followed by swelling, redness, and pus discharge. Patient went to the [facility] clinic and he was referred to the ED. Blood sugars at home has been in 200s. Has paresthesia of feet for few months. No visual symptoms. . Patient denies fever, sweats, chills. No polyuria, polydipsia or nocturia - History Source History Provided By: Patient, Medical Record Limitations to Obtaining History: No Limitations - Past Medical History Cardio/Vascular: Yes: HTN Pulmonary: Yes: Asthma. No: Previously Intubated Endocrine: Yes: Diabetes Mellitus - Past Surgical History Past Surgical History: Yes: None - Alcohol/Substance Use Hx Alcohol Use: No History of Substance Use: reports: None - Smoking History Smoking history: Current every day smoker Have you smoked in the past 12 months: Yes Aproximately how many cigarettes per day: 10 - Social History Usual Living Arrangement: With Spouse ADL: Independent Occupation: works at [employer] History of Recent Travel: No Home Medications - Allergies Allergies/Adverse Reactions: Allergies Allergy/AdvReac Type Severity Reaction Status Date / Time metformin AdvReac Verified 10/08/17 10:21 - Home Medications Home Medications: Ambulatory Orders Amlodipine Besylate [Norvasc -] 5 mg PO DAILY 10/25/16 Benazepril HCl 10 mg PO DAILY 10/25/16 Glyburide [Diabeta -] 5 mg PO DAILY@0700 10/25/16 Linagliptin [Tradjenta] 5 mg PO DAILY 10/25/16 Simvastatin [Zocor -] 20 mg PO DAILY 10/25/16 Levemir Flextouch 35 units SQ DAILY 10/08/17 Family Disease History - Family Disease History Family Disease History: Diabetes: Grandparent, Father Review of Systems - Review of Systems Constitutional: reports: No Symptoms Eyes: reports: No Symptoms HENT: reports: No Symptoms Neck: reports: No Symptoms Cardiovascular: reports: No Symptoms Respiratory: reports: No Symptoms Gastrointestinal: reports: No Symptoms Genitourinary: reports: No Symptoms Musculoskeletal: reports: No Symptoms Neurological: reports: No Symptoms Endocrine: reports: No Symptoms Hematology/Lymphatic: reports: No Symptoms Physical Exam Vital Signs: Vital Signs Temperature 97.7 F 10/09/17 08:59 Pulse Rate 78 10/09/17 08:59 Respiratory Rate 18 10/09/17 08:59 Blood Pressure 129/85 10/09/17 08:59 O2 Sat by Pulse Oximetry (%) 97 10/08/17 21:00 Constitutional: Yes: No Distress, Calm Eyes: Yes: Conjunctiva Clear, EOM Intact HENT: Yes: Atraumatic, Normocephalic Neck: Yes: Supple Cardiovascular: Yes: Regular Rate and Rhythm Respiratory: Yes: Regular, CTA Bilaterally Gastrointestinal: Yes: Normal Bowel Sounds, Soft Extremities: Yes: Other (Left foot dressing) Edema: No Neurological: Yes: Alert, Oriented Labs: CBC, BMP 10/09/17 06:30 10/09/17 06:30 Imaging - Results MRI: Report Reviewed (Left foot: Osteo can't be excluded) Assessment/Plan AP: Left big toe Infection T2DM BGM Q 4hrs for today Decrease levemir to 18 units daily for now. Pt was not on previously so unsure how much he would need Novolog SS coverage Nutrition consult. IV Abx as per ID will f/u
[2017-10-09] MEDS: LISINOPRIL 10 MG TABLET (FP) PO SCH (09:54)
[2017-10-09] MEDS: amLODIPine BESYLATE 5 MG TABLET (FP) PO SCH (09:54)
[2017-10-09] MEDS: ENOXAPARIN NA (PORCINE) 40 MG/0.4 ML DISP.SYRIN SQ SCH (09:54)
[2017-10-09] MEDS: COLLAGENASE CLOSTRIDIUM HIST. 30 GRAMS TUBE TP SCH (09:55)
[2017-10-09] MEDS: VANCOMYCIN 1,250 MG in DEXTROSE 5%-WATER - 250 ML IVPB SCH ×2 (10:49→21:24)
--- NOTE | 2017-10-09 13:28 | PN ---
Physical Exam: SUBJECTIVE: Patient seen and examined at bedside. Had debridement this morning, nurse changing dressing. Denies pain. OBJECTIVE: Vital Signs Period Temp Pulse Resp BP Sys/Lorenzo Pulse Ox Last 24 Hr 97.7 F-98.4 F 74-106 17-18 106-137/55-86 97-100 GENERAL: Awake, alert, and fully oriented, in no acute distress. LUNGS: Breath sounds equal, clear to auscultation bilaterally. No wheezes, and no crackles. No accessory muscle use. HEART: Regular rate and rhythm, normal S1 and S2 without murmur, rub or gallop. ABDOMEN: Soft, nontender, not distended, normoactive bowel sounds, no guarding, no rebound, no masses. No hepatomegaly or splenomegaly. MUSCULOSKELETAL: Normal range of motion at all joints. No bony deformities or tenderness. No CVA tenderness. UPPER EXTREMITIES: 2+ pulses, warm, well-perfused. No cyanosis. No clubbing. No peripheral edema. LEFT LOWER EXTREMITIES: great toe nail trimmed, wound debrided, no active bleeding; no tracking cellulitis seen; 2+ pulses, warm, well-perfused, 5/5 sensory NEUROLOGICAL: Cranial nerves II-XII intact. Normal speech. Laboratory Results - last 24 hr 10/08/17 10/08/17 10/08/17 11:48 12:15 12:15 WBC RBC Hgb Hct MCV MCH MCHC RDW Plt Count MPV Neutrophils % Lymphocytes % Monocytes % Eosinophils % Basophils % ESR VBG pH 7.41 POC VBG pCO2 43.1 POC VBG pO2 50.5 H Mixed VBG HCO3 26.8 H Sodium 139 Potassium 4.1 Chloride 103 Carbon Dioxide 26 Anion Gap 10 BUN 13 D Creatinine 0.9 Creat Clearance w eGFR > 60 POC Glucometer Random Glucose 210 H D Hemoglobin A1c % Lactic Acid Calcium 8.9 Phosphorus Magnesium Total Bilirubin 0.8 D AST 11 L D ALT 23 D Alkaline Phosphatase 88 D C-Reactive Protein Total Protein 7.0 Albumin 3.7 D Urine Color Urine Appearance Urine pH Ur Specific [place] Urine Protein Urine Glucose (UA) Urine Ketones Urine Blood Urine Nitrite Urine Bilirubin Urine Urobilinogen Ur Leukocyte Esterase Urine WBC (Auto) Urine RBC (Auto) Ur Epithelial Cells Blood Type O POSITIVE Antibody Screen Negative 10/08/17 10/08/17 10/08/17 12:15 14:00 15:57 WBC RBC Hgb Hct MCV MCH MCHC RDW Plt Count MPV Neutrophils % Lymphocytes % Monocytes % Eosinophils % Basophils % ESR VBG pH POC VBG pCO2 POC VBG pO2 Mixed VBG HCO3 Sodium Potassium Chloride Carbon Dioxide Anion Gap BUN Creatinine Creat Clearance w eGFR POC Glucometer Random Glucose Hemoglobin A1c % Lactic Acid 1.2 Calcium Phosphorus Magnesium Total Bilirubin AST ALT Alkaline Phosphatase C-Reactive Protein 4.5 H Total Protein Albumin Urine Color Ltyellow Urine Appearance Cloudy Urine pH 5.0 Ur Specific [place] 1.022 Urine Protein Negative Urine Glucose (UA) 3+ H Urine Ketones Negative Urine Blood Negative Urine Nitrite Negative Urine Bilirubin Negative Urine Urobilinogen Negative Ur Leukocyte Esterase 2+ H Urine WBC (Auto) 12 Urine RBC (Auto) 3 Ur Epithelial Cells Rare Blood Type Antibody Screen 10/08/17 10/08/17 10/08/17 15:57 17:35 23:01 WBC RBC Hgb Hct MCV MCH MCHC RDW Plt Count MPV Neutrophils % Lymphocytes % Monocytes % Eosinophils % Basophils % ESR 6 VBG pH POC VBG pCO2 POC VBG pO2 Mixed VBG HCO3 Sodium Potassium Chloride Carbon Dioxide Anion Gap BUN Creatinine Creat Clearance w eGFR POC Glucometer 169 268 Random Glucose Hemoglobin A1c % Lactic Acid Calcium Phosphorus Magnesium Total Bilirubin AST ALT Alkaline Phosphatase C-Reactive Protein Total Protein Albumin Urine Color Urine Appearance Urine pH Ur Specific [place] Urine Protein Urine Glucose (UA) Urine Ketones Urine Blood Urine Nitrite Urine Bilirubin Urine Urobilinogen Ur Leukocyte Esterase Urine WBC (Auto) Urine RBC (Auto) Ur Epithelial Cells Blood Type Antibody Screen 10/09/17 10/09/17 10/09/17 06:18 06:30 06:30 WBC 8.4 RBC 4.92 Hgb 14.8 Hct 45.0 MCV 91.5 MCH 30.0 MCHC 32.8 RDW 13.1 Plt Count 216 MPV 9.7 Neutrophils % 49.1 D Lymphocytes % 32.1 D Monocytes % 12.2 H Eosinophils % 5.8 H D Basophils % 0.8 ESR VBG pH POC VBG pCO2 POC VBG pO2 Mixed VBG HCO3 Sodium Potassium Chloride Carbon Dioxide Anion Gap BUN Creatinine Creat Clearance w eGFR POC Glucometer 174 Random Glucose Hemoglobin A1c % 10.1 H D Lactic Acid Calcium Phosphorus Magnesium Total Bilirubin AST ALT Alkaline Phosphatase C-Reactive Protein Total Protein Albumin Urine Color Urine Appearance Urine pH Ur Specific [place] Urine Protein Urine Glucose (UA) Urine Ketones Urine Blood Urine Nitrite Urine Bilirubin Urine Urobilinogen Ur Leukocyte Esterase Urine WBC (Auto) Urine RBC (Auto) Ur Epithelial Cells Blood Type Antibody Screen 10/09/17 10/09/17 10/09/17 06:30 09:45 11:14 WBC RBC Hgb Hct MCV MCH MCHC RDW Plt Count MPV Neutrophils % Lymphocytes % Monocytes % Eosinophils % Basophils % ESR VBG pH POC VBG pCO2 POC VBG pO2 Mixed VBG HCO3 Sodium 139 Potassium 4.1 Chloride 104 Carbon Dioxide 27 Anion Gap 8 BUN 12 Creatinine 0.9 Creat Clearance w eGFR > 60 POC Glucometer 195 232 Random Glucose 175 H Hemoglobin A1c % Lactic Acid Calcium 7.9 L Phosphorus 4.3 D Magnesium 1.9 Total Bilirubin 0.9 AST 10 L ALT 18 D Alkaline Phosphatase 71 C-Reactive Protein Total Protein 5.8 L Albumin 3.0 L Urine Color Urine Appearance Urine pH Ur Specific [place] Urine Protein Urine Glucose (UA) Urine Ketones Urine Blood Urine Nitrite Urine Bilirubin Urine Urobilinogen Ur Leukocyte Esterase Urine WBC (Auto) Urine RBC (Auto) Ur Epithelial Cells Blood Type Antibody Screen Active Medications Generic Name Dose Route Start Last Admin Trade Name Blancoq PRN Reason Stop Dose Admin Amlodipine Besylate 5 mg 10/09/17 10:00 10/09/17 09:54 Norvasc - PO 5 mg DAILY [facility] Administration Atorvastatin Calcium 10 mg 10/09/17 22:00 Lipitor - PO HS ADOLFO Collagenase 1 applic 10/09/17 10:00 10/09/17 09:55 Santyl - TP 1 applic DAILY [facility] Administration Enoxaparin Sodium 40 mg 10/09/17 10:00 10/09/17 09:54 Lovenox - SQ 40 mg DAILY [facility] Administration Piperacillin Sod/Tazobactam 100 mls @ 200 mls/hr 10/08/17 18:00 10/09/17 09: 55 Sod 4.5 gm/ Dextrose IVPB 200 mls/hr Q8H-IV [facility] Administration Vancomycin HCl 1,250 mg/ 250 mls @ 166.667 mls/hr 10/08/17 22:00 10/09/17 10: 49 Dextrose IVPB 166.667 mls/hr BID [facility] Administration Protocol Insulin Aspart 1 vial 10/08/17 23:30 10/08/17 23:34 Novolog Vial Sliding Scale - SQ 3 unit HS [facility] Administration Protocol Insulin Aspart 1 vial 10/09/17 07:00 10/09/17 11:55 Novolog Vial Sliding Scale - SQ 3 unit TIDAC [facility] Administration Protocol Insulin Detemir 35 units 10/09/17 07:00 10/09/17 06:20 Levemir Vial SQ 35 unit DAILY@0700 [facility] Administration Lisinopril 10 mg 10/09/17 10:00 10/09/17 09:54 Prinivil PO 10 mg DAILY [facility] Administration ASSESSMENT/PLAN: 44 year-old male with a PMH significant for HTN, HLD, asthma, poorly-controlled diabetes, and scrotal cellulitis. Admitted for left great toe infection. Left great toe infection --s/p manual debridement of mycotic nail s/p excisional debridement of ulcer to subq tissue --MRI: osteo cannot be excluded, may need bone biopsy; discussed with Dr. eMndez --continue empiric Vanc (day #2) and Zosyn (day #2) --collagenase dressing daily --ID and podiatry following h/o scrotal cellulitis 2014 --Group B strep Hypertension --BP stable --continue lisinopril, amlodipine Hyperlipidemia --continue Lipitor NIDDM --Novolog sliding scale coverage --endocrine consult pending Asthma --stable FEN Fluids: PO intake adequate Electrolytes: replete as indicated Nutrition: diabetic diet; nutrition consult requested for patient teaching DVT prophylaxis: lovenox, oob, ambulation Dispo: continues to require inpatient care. Full code. Visit type - Emergency Visit Emergency Visit: Yes ED Registration Date: 10/08/17 Care time: The patient presented to the Emergency Department on the above date and was hospitalized for further evaluation of their emergent condition. - New Patient This patient is new to me today: No - Critical Care Critical Care patient: No
--- NOTE | 2017-10-09 15:24 | PN ---
Progress Note (short form) - Note Progress Note: toe debrided by podiatry Vital Signs Period Temp Pulse Resp BP Sys/Lorenzo Pulse Ox Last 24 Hr 97.7 F-98.4 F 74-106 17-20 106-137/55-86 97-100 cor-rrr lungs clear abd soft,nt ext foot bandaged CBC, BMP 10/09/17 06:30 10/09/17 06:30 Microbiology 10/08/17 12:15 Blood - Peripheral Venous Blood Culture - Preliminary NO GROWTH OBTAINED AFTER 24 HOURS, INCUBATION TO CONTINUE FOR 4 DAYS. 10/08/17 11:48 Blood - Peripheral Venous Blood Culture - Preliminary NO GROWTH OBTAINED AFTER 24 HOURS, INCUBATION TO CONTINUE FOR 4 DAYS. wound cultures pending Laboratory Tests 10/08/17 10/08/17 10/09/17 15:57 15:57 06:30 ESR 6 Hemoglobin A1c % 10.1 H D C-Reactive Protein 4.5 H a/p diabetic foot infection mri equivocal- not definite osteo- will d/w podiatry continue vanco/zosyn smoking cessation Problem List - Problems (1) Diabetic foot infection Code(s): E11.69 - TYPE 2 DIABETES MELLITUS WITH OTHER SPECIFIED COMPLICATION; L08.9 - LOCAL INFECTION OF THE SKIN AND SUBCUTANEOUS TISSUE, UNSP (2) Diabetes Code(s): E11.9 - TYPE 2 DIABETES MELLITUS WITHOUT COMPLICATIONS Qualifiers: Diabetes mellitus type: type 2
[2017-10-09] MEDS: ATORVASTATIN CA 10 MG TABLET (FP) PO SCH (21:21)
[2017-10-09 22:29] LABS: BASO % 0.9 % (0-2.0); EOS % 6.8 % (0-4.5); HEMATOCRIT 43.5 % (35.4-49); HEMOGLOBIN 14.6 GM/dL (11.7-16.9); LYMPH % 38.2 % (8-40); MCH 30.8 pg (25.7-33.7); MCHC 33.6 g/dl (32.0-35.9); MEAN CELL VOLUME 91.8 fl (80-96); MEAN PLT VOLUME 9.7 fl (7.5-11.1); NEUT % 43.1 % (42.8-82.8); RBC 4.74 M/mm3 (4.00-5.60); WHITE BLOOD COUNT 8.8 K/mm3 (4.0-10.0)
[2017-10-09 23:00] LABS: ALK PHOS 69 U/L (45-117); ANION GAP 8 (8-16); BILIRUBIN,TOTAL 0.5 mg/dL (0.2-1.0); BLOOD UREA NITROGEN 12 mg/dL (7-18); CALCIUM 8.5 mg/dL (8.5-10.1); CHLORIDE 100 mmol/L (98-107); CO2 28 mmol/L (21-32); GLUCOSE,RANDOM 228 mg/dL (74-106); MAGNESIUM 1.8 mg/dL (1.8-2.4); POTASSIUM 4.2 mmol/L (3.5-5.1); SGOT/AST 11 U/L (15-37); SGPT/ALT 19 U/L (12-78); SODIUM 136 mmol/L (136-145); TOT PROT 5.8 g/dl (6.4-8.2)
[2017-10-09 23:01] LABS: PLATELET COUNT 208 K/MM3 (134-434); PLATELET ESTIMATE ADEQUATE
[2017-10-10] MEDS: PIPERACILLIN/TAZOB 4.5 GM 4.5 GM in DEXTROSE 5%-WATER - 100 ML IVPB SCH ×3 (01:04→17:31)
[2017-10-10] MEDS: INSULIN SLIDING SCALE (NOVOLOG) 1 VIAL SQ SCH ×5 (06:32→22:22)
[2017-10-10] MEDS ORDERED: INSULIN DETEMIR 100 UNITS/ML MDV SQ SCH (07:00)
--- NOTE | 2017-10-10 08:52 | PN ---
Physical Exam: SUBJECTIVE: Patient seen and examined. He is oob denies fever, chills. OBJECTIVE: Vital Signs Period Temp Pulse Resp BP Sys/Lorenzo Pulse Ox Last 24 Hr 97.7 F-98.8 F 67-84 18-20 98-129/66-85 97-98 PE Neuro: alert, awake, cn 2-12intact Pulm: CTAB CV: s1 s2 rrr no mrg Abd: s nt nd + bs Ext: L toe dried blood, mild swelling, nail bed exposed Laboratory Results - last 24 hr 10/09/17 10/09/17 10/09/17 20:43 22:00 22:00 WBC 8.8 RBC 4.74 Hgb 14.6 Hct 43.5 MCV 91.8 MCH 30.8 MCHC 33.6 RDW 13.0 Plt Count 208 MPV 9.7 Neutrophils % 43.1 Lymphocytes % 38.2 Monocytes % 11.0 H Eosinophils % 6.8 H Basophils % 0.9 Platelet Estimate Adequate Platelet Comment No clumping noted Sodium 136 Potassium 4.2 Chloride 100 Carbon Dioxide 28 Anion Gap 8 BUN 12 Creatinine 1.0 Creat Clearance w eGFR > 60 POC Glucometer 186 Random Glucose 228 H D Calcium 8.5 Magnesium 1.8 Total Bilirubin 0.5 D AST 11 L ALT 19 Alkaline Phosphatase 69 Total Protein 5.8 L Albumin 3.0 L Active Medications Generic Name Dose Route Start Last Admin Trade Name Freq PRN Reason Stop Dose Admin Amlodipine Besylate 5 mg 10/09/17 10:00 10/09/17 09:54 Norvasc - PO 5 mg DAILY ADOLFO Administration Atorvastatin Calcium 10 mg 10/09/17 22:00 10/09/17 21:21 Lipitor - PO 10 mg HS AD[facility]FO Administration Collagenase 1 applic 10/09/17 10:00 10/09/17 09:55 Santyl - TP 1 applic DAILY [facility] Administration Enoxaparin Sodium 40 mg 10/09/17 10:00 10/09/17 09:54 Lovenox - SQ 40 mg DAILY AD[facility] Administration Piperacillin Sod/Tazobactam 100 mls @ 200 mls/hr 10/08/17 18:00 10/10/17 01: 04 Sod 4.5 gm/ Dextrose IVPB 200 mls/hr Q8H-IV [facility] Administration Vancomycin HCl 1,250 mg/ 250 mls @ 166.667 mls/hr 10/08/17 22:00 10/09/17 21: 24 Dextrose IVPB 166.667 mls/hr BID ADOLFO Administration Protocol Insulin Aspart 1 vial 10/08/17 23:30 10/09/17 21:20 Novolog Vial Sliding Scale - SQ Not Given HS [facility] Protocol Insulin Aspart 1 vial 10/09/17 13:22 10/10/17 06:32 Novolog Vial Sliding Scale - SQ 2 units TIDAC [facility] Administration Protocol Insulin Detemir 18 units 10/10/17 07:00 10/10/17 06:31 Levemir Vial SQ 18 units DAILY@0700 [facility] Administration Lisinopril 10 mg 10/09/17 10:00 10/09/17 09:54 Prinivil PO 10 mg DAILY ADOLFO Administration Assessment: 44 year-old male with a PMH significant for HTN, HLD, asthma, poorly -controlled diabetes, and scrotal cellulitis. Admitted for left great toe infection. Plan: 1. Left great toe infection - s/p manual debridement of mycotic nail s/p excisional debridement of ulcer to subq tissue 2/2 - MRI cannot rule out osteo - Continue empiric Vanc (day #3) and Zosyn (day #3) - Collagenase dressing daily - ID and podiatry following 2. h/o scrotal cellulitis 2014 - Group B strep 3. Hypertension - BP stable - Continue lisinopril, amlodipine 4. HLD - Continue Lipitor 5. DM II - Levemir 18units daily - ISS, BGM TIDAC, HS - Endocrine seeing 6. Asthma - Stable 7. DVT prophylaxis - lovenox, oob, ambulation Visit type - Emergency Visit Emergency Visit: Yes ED Registration Date: 10/08/17 Care time: The patient presented to the Emergency Department on the above date and was hospitalized for further evaluation of their emergent condition. - New Patient This patient is new to me today: Yes Date on this admission: 10/10/17 - Critical Care Critical Care patient: No
[2017-10-10] MEDS ORDERED: PT OWN MED DRAWER 7, Y5N ONE ×3 (10:09→23:22)
[2017-10-10] MEDS: ENOXAPARIN NA (PORCINE) 40 MG/0.4 ML DISP.SYRIN SQ SCH (10:16)
[2017-10-10] MEDS: LISINOPRIL 10 MG TABLET (FP) PO SCH ×2 (10:16→10:43)
[2017-10-10] MEDS: amLODIPine BESYLATE 5 MG TABLET (FP) PO SCH ×2 (10:16→10:44)
[2017-10-10] MEDS: VANCOMYCIN 1,250 MG in DEXTROSE 5%-WATER - 250 ML IVPB SCH ×2 (10:41→14:45)
[2017-10-10] MEDS ORDERED: INSULIN (NOVOLOG) ASPART 100 UNITS/ML 10ML VIAL ONE (12:08)
[2017-10-10] MEDS: COLLAGENASE CLOSTRIDIUM HIST. 30 GRAMS TUBE TP SCH (15:16)
--- NOTE | 2017-10-10 17:03 | PN ---
Progress Note (short form) - Note Progress Note: Denies any complaints Vital Signs Period Temp Pulse Resp BP Sys/Lorenzo Pulse Ox Last 24 Hr 97.3 F-98.8 F 67-78 18-18 97-115/53-79 97 PE: Ax3 Neck: Supple, No JVD HEENT: PERRL,EOMI Lungs: CTA CVS: S1S2 Abd: Benign Ext: Left foot dressing Neuro; No focal deficit CMP Sodium 136 mmol/L (136-145) 10/09/17 22:00 Potassium 4.2 mmol/L (3.5-5.1) 10/09/17 22:00 Chloride 100 mmol/L (98-107) 10/09/17 22:00 Carbon Dioxide 28 mmol/L (21-32) 10/09/17 22:00 Anion Gap 8 (8-16) 10/09/17 22:00 BUN 12 mg/dL (7-18) 10/09/17 22:00 Creatinine 1.0 mg/dL (0.7-1.3) 10/09/17 22:00 Creat Clearance w eGFR > 60 (>60) 10/09/17 22:00 POC Glucometer 242 UNITS (80-120) 10/10/17 12:00 Random Glucose 228 mg/dL (74-106) H D 10/09/17 22:00 Hemoglobin A1c % 10.1 % (4.8-6.0) H D 10/09/17 06:30 Lactic Acid 1.2 mmol/L (0.0-2.0) 10/08/17 12:15 Calcium 8.5 mg/dL (8.5-10.1) 10/09/17 22:00 Phosphorus 4.3 mg/dL (2.5-4.9) D 10/09/17 06:30 Magnesium 1.8 mg/dL (1.8-2.4) 10/09/17 22:00 Total Bilirubin 0.5 mg/dL (0.2-1.0) D 10/09/17 22:00 AST 11 U/L (15-37) L 10/09/17 22:00 ALT 19 U/L (12-78) 10/09/17 22:00 Alkaline Phosphatase 69 U/L (45-117) 10/09/17 22:00 C-Reactive Protein 4.5 MG/DL (0.00-0.3) H 10/08/17 15:57 Total Protein 5.8 g/dl (6.4-8.2) L 10/09/17 22:00 Albumin 3.0 g/dl (3.4-5.0) L 10/09/17 22:00 Current Medications Generic Name Dose Route Start Last Admin Trade Name Freq PRN Reason Stop Dose Admin Amlodipine Besylate 5 mg 10/09/17 10:00 10/10/17 10:44 Norvasc - PO Not Given DAILY [facility] Atorvastatin Calcium 10 mg 10/09/17 22:00 10/09/17 21:21 Lipitor - PO 10 mg HS [facility] Administration Collagenase 1 applic 10/09/17 10:00 10/10/17 15:16 Santyl - TP 1 applic DAILY [facility] Administration Enoxaparin Sodium 40 mg 10/09/17 10:00 10/10/17 10:16 Lovenox - SQ 40 mg DAILY ADOLFO Administration Piperacillin Sod/Tazobactam 100 mls @ 200 mls/hr 10/08/17 18:00 10/10/17 10: 16 Sod 4.5 gm/ Dextrose IVPB 200 mls/hr Q8H-IV [facility] Administration Vancomycin HCl 1,250 mg/ 250 mls @ 166.667 mls/hr 10/11/17 02:00 Dextrose IVPB BID@0200,1400 [facility] Protocol Insulin Aspart 1 vial 10/08/17 23:30 10/09/17 21:20 Novolog Vial Sliding Scale - SQ Not Given HS [facility] Protocol Insulin Aspart 1 vial 10/09/17 13:22 10/10/17 12:09 Novolog Vial Sliding Scale - SQ 4 units TIDAC [facility] Administration Protocol Insulin Detemir 18 units 10/10/17 07:00 10/10/17 06:31 Levemir Vial SQ 18 units DAILY@0700 [facility] Administration Lisinopril 10 mg 10/09/17 10:00 10/10/17 10:43 Prinivil PO Not Given DAILY [facility] AP: Left big toe Infection T2DM BGM QACHS Increase levemir to 22 units daily. Novolog SS coverage Nutrition consult. IV Abx as per ID will f/u
[2017-10-10] MEDS: ATORVASTATIN CA 10 MG TABLET (FP) PO SCH (22:26)
[2017-10-11] MEDS ORDERED: PT OWN MED DRAWER 7, Y5N ONE ×2 (01:18→10:49)
[2017-10-11] MEDS: PIPERACILLIN/TAZOB 4.5 GM 4.5 GM in DEXTROSE 5%-WATER - 100 ML IVPB SCH ×3 (01:30→17:47)
[2017-10-11] MEDS: VANCOMYCIN 1,250 MG in DEXTROSE 5%-WATER - 250 ML IVPB SCH ×3 (02:10→16:08)
[2017-10-11] MEDS: INSULIN DETEMIR 100 UNITS/ML MDV SQ SCH (06:30)
[2017-10-11] MEDS: INSULIN SLIDING SCALE (NOVOLOG) 1 VIAL SQ SCH ×4 (06:31→21:30)
[2017-10-11] MEDS: ENOXAPARIN NA (PORCINE) 40 MG/0.4 ML DISP.SYRIN SQ SCH (10:53)
[2017-10-11] MEDS: LISINOPRIL 10 MG TABLET (FP) PO SCH (10:55)
[2017-10-11] MEDS: amLODIPine BESYLATE 5 MG TABLET (FP) PO SCH (10:55)
--- NOTE | 2017-10-11 13:48 | PN ---
Physical Exam: SUBJECTIVE: Patient seen and examined. No acute complaints, wants to go back to work OBJECTIVE: Vital Signs Period Temp Pulse Resp BP Sys/Lorenzo Pulse Ox Last 24 Hr 97.3 F-97.8 F 73-88 18-18 112-124/53-85 99-99 PE Neuro: alert, awake, cn 2-12intact Pulm: CTAB CV: s1 s2 rrr no mrg Abd: s nt nd + bs Ext: L toe dried blood, nail bed exposed, mild drainage on dressing Laboratory Results - last 24 hr 10/10/17 10/10/17 10/11/17 16:47 22:17 06:29 POC Glucometer 189 132 168 10/11/17 11:59 POC Glucometer 167 Active Medications Generic Name Dose Route Start Last Admin Trade Name Freq PRN Reason Stop Dose Admin Amlodipine Besylate 5 mg 10/09/17 10:00 10/11/17 10:55 Norvasc - PO 5 mg DAILY ADOLFO Administration Atorvastatin Calcium 10 mg 10/09/17 22:00 10/10/17 22:26 Lipitor - PO 10 mg HS [facility]FO Administration Collagenase 1 applic 10/09/17 10:00 10/10/17 15:16 Santyl - TP 1 applic DAILY [facility] Administration Enoxaparin Sodium 40 mg 10/09/17 10:00 10/11/17 10:53 Lovenox - SQ 40 mg DAILY [facility] Administration Piperacillin Sod/Tazobactam 100 mls @ 200 mls/hr 10/08/17 18:00 10/11/17 10: 53 Sod 4.5 gm/ Dextrose IVPB 200 mls/hr Q8H-IV [facility] Administration Vancomycin HCl 1,250 mg/ 250 mls @ 166.667 mls/hr 10/11/17 02:00 10/11/17 02: 10 Dextrose IVPB 166.667 mls/hr BID@0200,1400 [facility] Administration Protocol Insulin Aspart 1 vial 10/08/17 23:30 10/10/17 22:22 Novolog Vial Sliding Scale - SQ Not Given HS [facility] Protocol Insulin Aspart 1 vial 10/10/17 16:30 10/11/17 12:01 Novolog Vial Sliding Scale - SQ 4 units TIDAC [facility] Administration Protocol Insulin Detemir 22 units 10/11/17 07:00 10/11/17 06:30 Levemir Vial SQ 22 unit DAILY@0700 [facility] Administration Lisinopril 10 mg 10/09/17 10:00 10/11/17 10:55 Prinivil PO 10 mg DAILY ADOLFO Administration Assessment: 44 year-old male with a PMH significant for HTN, HLD, asthma, poorly -controlled diabetes, and scrotal cellulitis. Admitted for left great toe infection. Plan: 1. Left great toe infection - s/p manual debridement of mycotic nail s/p excisional debridement of ulcer to subq tissue 2/2 - MRI cannot rule out osteo - Continue empiric Vanc (day 4) and Zosyn (day #4) - Collagenase dressing daily - ID and podiatry following 2. h/o scrotal cellulitis 2014 - Group B strep 3. Hypertension - BP stable - Continue lisinopril, amlodipine 4. HLD - Continue Lipitor 5. DM II - Increase Levemir 22units daily - ISS, BGM TIDAC, HS - Endocrine seeing 6. Asthma - Stable 7. DVT prophylaxis - lovenox, oob, ambulation Visit type - Emergency Visit Emergency Visit: Yes ED Registration Date: 10/08/17 Care time: The patient presented to the Emergency Department on the above date and was hospitalized for further evaluation of their emergent condition. - New Patient This patient is new to me today: No - Critical Care Critical Care patient: No
[2017-10-11] MEDS: COLLAGENASE CLOSTRIDIUM HIST. 30 GRAMS TUBE TP SCH (16:14)
[2017-10-11] MEDS ORDERED: INSULIN (NOVOLOG) ASPART 100 UNITS/ML 10ML VIAL ONE (21:11)
[2017-10-11] MEDS: ATORVASTATIN CA 10 MG TABLET (FP) PO SCH (21:28)
[2017-10-12] MEDS: PIPERACILLIN/TAZOB 4.5 GM 4.5 GM in DEXTROSE 5%-WATER - 100 ML IVPB SCH ×2 (01:39→11:10)
[2017-10-12] MEDS: VANCOMYCIN 1,250 MG in DEXTROSE 5%-WATER - 250 ML IVPB SCH ×2 (02:22→13:47)
[2017-10-12] MEDS: INSULIN DETEMIR 100 UNITS/ML MDV SQ SCH (06:05)
[2017-10-12] MEDS: INSULIN SLIDING SCALE (NOVOLOG) 1 VIAL SQ SCH ×2 (06:07→13:38)
[2017-10-12 08:53] LABS: BASO % 0.9 % (0-2.0); EOS % 3.4 % (0-4.5); HEMATOCRIT 51.9 % (35.4-49); HEMOGLOBIN 16.7 GM/dL (11.7-16.9); LYMPH % 33.5 % (8-40); MCH 29.8 pg (25.7-33.7); MCHC 32.2 g/dl (32.0-35.9); MEAN CELL VOLUME 92.5 fl (80-96); MEAN PLT VOLUME 9.2 fl (7.5-11.1); MONO % 8.4 % (3.8-10.2); NEUT % 53.8 % (42.8-82.8); PLATELET COUNT 242 K/MM3 (134-434); RBC 5.61 M/mm3 (4.00-5.60); RDW 13.1 % (11.9-15.9); WHITE BLOOD COUNT 9.9 K/mm3 (4.0-10.0)
[2017-10-12 09:28] LABS: ALBUMIN 3.7 g/dl (3.4-5.0); ANION GAP 7 (8-16); BILIRUBIN,TOTAL 0.8 mg/dL (0.2-1.0); BLOOD UREA NITROGEN 13 mg/dL (7-18); CHLORIDE 101 mmol/L (98-107); CO2 29 mmol/L (21-32); CREATININE 0.9 mg/dL (0.7-1.3); GLUCOSE,RANDOM 174 mg/dL (74-106); POTASSIUM 4.2 mmol/L (3.5-5.1); SGOT/AST 17 U/L (15-37); SGPT/ALT 30 U/L (12-78); SODIUM 137 mmol/L (136-145)
[2017-10-12 09:29] LABS: ALK PHOS 79 U/L (45-117); TOT PROT 7.1 g/dl (6.4-8.2)
[2017-10-12] MEDS: ENOXAPARIN NA (PORCINE) 40 MG/0.4 ML DISP.SYRIN SQ SCH (11:10)
[2017-10-12] MEDS: amLODIPine BESYLATE 5 MG TABLET (FP) PO SCH (11:14)
[2017-10-12] MEDS: LISINOPRIL 10 MG TABLET (FP) PO SCH (11:14)
--- NOTE | 2017-10-12 11:45 | PN ---
Progress Note (short form) - Note Progress Note: no complaints Vital Signs Period Temp Pulse Resp BP Sys/Lorenzo Pulse Ox Last 24 Hr 97.3 F-98.1 F 75-85 18-20 96-108/53-56 99 toe is dry, no drainage MRI d/w Radiologist (dr ang[place]) - unlikely osteo esr 6 no exposed bone CBC, BMP 10/12/17 08:40 10/12/17 08:40 Microbiology 10/08/17 12:15 Blood - Peripheral Venous Blood Culture - Preliminary NO GROWTH OBTAINED AFTER 72 HOURS, INCUBATION TO CONTINUE FOR 2 DAYS. 10/08/17 11:48 Blood - Peripheral Venous Blood Culture - Preliminary NO GROWTH OBTAINED AFTER 72 HOURS, INCUBATION TO CONTINUE FOR 2 DAYS. 10/08/17 14:53 Foot - Left Gram Stain - Final 10/08/17 14:53 Foot - Left Wound Culture - Preliminary Klebsiella Pneumoniae Citrobacter Freundii Complex Proteus Vulgaris Strep Agalactiae Group B Staphylococcus Aureus Diphtheroid/Corynebacterium 10/09/17 08:10 Foot - Left Gram Stain - Final 10/09/17 08:10 Foot - Left Wound Culture - Final Serratia Marcescens Staphylococcus Aureus Strep Agalactiae Group B 10/08/17 21:00 Urine - Urine Clean Catch Urine Culture - Final NO GROWTH OBTAINED a/p diabetic foot infection doing well can switch to po bactrim and augmentin both bid for 3 weeks (21 days) d/w Dr Rahman he can see him tomorrow in wound care center we would be happy to see him as well as needed smoking cessation advised Problem List - Problems (1) Diabetic foot infection Code(s): E11.69 - TYPE 2 DIABETES MELLITUS WITH OTHER SPECIFIED COMPLICATION; L08.9 - LOCAL INFECTION OF THE SKIN AND SUBCUTANEOUS TISSUE, UNSP (2) Diabetes Code(s): E11.9 - TYPE 2 DIABETES MELLITUS WITHOUT COMPLICATIONS Qualifiers: Diabetes mellitus type: type 2 (3) Smoker Code(s): F17.200 - NICOTINE DEPENDENCE, UNSPECIFIED, UNCOMPLICATED
--- NOTE | 2017-10-12 11:54 | DS ---
Physical Exam: SUBJECTIVE: Patient seen and examined at the bedside. He denies pain on foot, states he is comfortable. OBJECTIVE: Patient is here for a left diabetic great toe foot infection As per ID, will switch medications to bactrim and augmentin both BID x 21 days Follow up with podiatry: (Dr Rahman), tomorrow in wound care center Vital Signs Period Temp Pulse Resp BP Sys/Lorenzo Pulse Ox Last 24 Hr 97.3 F-98.1 F 75-85 18-20 96-108/53-56 99 PHYSICAL EXAM GENERAL: The patient is awake, alert, and fully oriented, in no acute distress. HEAD: Normal with no signs of trauma. EYES: PERRL, extraocular movements intact, sclera anicteric, conjunctiva clear. ENT: Ears normal, nares patent, oropharynx clear without exudates, moist mucous membranes. NECK: Trachea midline, full range of motion, supple. LUNGS: Breath sounds equal, clear to auscultation bilaterally, no wheezes, no crackles, no accessory muscle use. HEART: Regular rate and rhythm, S1, S2 without murmur, rub or gallop. ABDOMEN: Soft, nontender, nondistended, normoactive bowel sounds, no guarding, no rebound, no hepatosplenomegaly, no masses. EXTREMITIES: 2+ pulses, warm, well-perfused, no edema. NEUROLOGICAL: Cranial nerves II through XII grossly intact. Normal speech, gait not observed. PSYCH: Normal mood, normal affect. SKIN: Warm, dry, normal turgor, no rashes or lesions noted. LABS Laboratory Results - last 24 hr 10/11/17 10/11/17 10/11/17 11:59 16:08 21:29 WBC RBC Hgb Hct MCV MCH MCHC RDW Plt Count MPV Neutrophils % Lymphocytes % Monocytes % Eosinophils % Basophils % Sodium Potassium Chloride Carbon Dioxide Anion Gap BUN Creatinine Creat Clearance w eGFR POC Glucometer 167 172 240 Random Glucose Calcium Total Bilirubin AST ALT Alkaline Phosphatase Total Protein Albumin 10/12/17 10/12/17 10/12/17 05:50 08:40 08:40 WBC 9.9 RBC 5.61 H Hgb 16.7 D Hct 51.9 H D MCV 92.5 MCH 29.8 MCHC 32.2 RDW 13.1 Plt Count 242 MPV 9.2 Neutrophils % 53.8 D Lymphocytes % 33.5 Monocytes % 8.4 Eosinophils % 3.4 Basophils % 0.9 Sodium 137 Potassium 4.2 Chloride 101 Carbon Dioxide 29 Anion Gap 7 L BUN 13 Creatinine 0.9 Creat Clearance w eGFR > 60 POC Glucometer 196 Random Glucose 174 H D Calcium 9.0 Total Bilirubin 0.8 D AST 17 D ALT 30 D Alkaline Phosphatase 79 Total Protein 7.1 D Albumin 3.7 D HOSPITAL COURSE: Date of Admission:10/08/17 Date of Discharge: 10/12/17 Patient is a 44 year old male with a significant past medical history of hypertension, hyperlipidemia, asthma and diabetes melliutus and scrotal cellulitis. He was admitted on 10/08/2017 for left great toe diabetic ulcer/ infection. Vascular/ID: Left great toe infection, acute Debridement of mycotic nail s/p excisional debridement of ulcer to sc tissue on 10/09/17 MRI cannot rule out osetomylitis, artifact noted s/p Vancomycn and Zosyn while inpatient, will be sent home with Bactrim BID and Augmentin BID for 3 more weeks as per ID. Woud care with Sofía NG with surgical boot ID and podiatry following Podiatry to see patient tomorrow at wound care clinic Cardiology: Hypertension, controlled On Lisinopril, amlodipine HLD, chronic On Lipitor Endocrine: Diabetes Mellitus Levemir 22 units daily Novolog sliding scale for home use Add Januvia as per endocriologist, pt has allergy to metformin Pt taught how to use a sliding scale Glucometer ordered for home use, patient taught how to use by primary RN Endocrine as outpatient Pulmonary: Asthma, stable Tolerating room air Lungs clear to auscultation Ventolin called into pt home pharmacy [facility] Fluids: PO adequate Electrolytes: monitor Nutrition: diabetic diet, received diabetic teaching while inpatient Prophylaxis: DVT: ambulation GI: deferred. Disposition: full code. Minutes to complete discharge: 60 Discharge Summary Reason For Visit: DIABETIC FOOT INFECTION Current Active Problems Diabetic foot infection (Acute) Smoker (Acute) Condition: Improved - Instructions Diet, Activity, Other Instructions: Mr. Ponce: Please continue the antibiotics as follows: Bactrim twice per day for 3 weeks total Augmentin twice per day for 3 more weeks Please purchase an over the counter Acidophilus (Bacid) so that you do not get abdominal discomfort with the antibiotics Please see Dr. Rahman tomorrow at the wound care center. Further please follow the following sliding scale for elevated blood sugars Levemir 22 units - take at bedtime, this helps regulate your blood sugars, it is a slow acting insulin Check your blood sugar before every meal and inject the following insulin from the fast acting insulin (Humalog) If your blood sugar is between Give yourself this much insulin 101-150 2 units 151-200 4 units 201-250 6 units 251-300 8 units 301-350 10 units 351-400 12 units 401 or greater 14 units and recheck your blood sugars after 15 mins. If remains elevated, please call your PCP immediately or go to the nearest ER You can bear weight on the left foot with the surgical show. Daily Wound care as follows: Clear your left foot with normal saline and pat dry Apply Santyl dressing (use a dime sized amount and placed on left great toe) and cover with a sterile gauze Wrap with Ziyad and apply surgical boot Please report any foul odor, drainage or redness immediately Dr. Villa (endrocrinology) would like to see you in 1 week in order to monitor your blood sugars closely. Please call his office to make an appointment. Please see your primary care physician within 3-5 days after discharge also. I am available today until 7pm and tomorrow between 7am and 7pm, please call me with any questions you may have. [facility] [phone] Referrals: Santiago Mendez MD [Staff Physician] - (tomorrow at the wound clinic) Lauren Askew MD [Staff Physician] - 1 Week María Kimble MD [Primary Care Provider] - Disposition: HOME - Home Medications Comprehensive Discharge Medication List: Ambulatory Orders Amlodipine Besylate [Norvasc -] 5 mg PO DAILY 10/25/16 Benazepril HCl 10 mg PO DAILY 10/25/16 Glyburide [Diabeta -] 5 mg PO DAILY@0700 10/25/16 Linagliptin [Tradjenta] 5 mg PO DAILY 10/25/16 Simvastatin [Zocor -] 20 mg PO DAILY 10/25/16 Levemir Flextouch 35 units SQ DAILY 10/08/17 Alcohol Antiseptic Pads [Alcohol Prep Pads] 1 each TP ACHS #1 box 10/12/17 Lancets [Lancets Ultra Thin] 1 each MC ACHS #1 box 10/12/17 Miscellaneous Medical Supply [Glucometer Device] 1 each SQ ASDIR #1 kit Miscellaneous Medical Supply [Glucometer Test Strips #100] 1 each SQ ASDIR #1 box 10/12/17 This patient is new to me today: Yes Date on this admission: 10/12/17 Emergency Visit: Yes ED Registration Date: 10/08/17 Care time: The patient presented to the Emergency Department on the above date and was hospitalized for further evaluation of their emergent condition. Critical Care patient: No - Discharge Referral Referred to [facility] No
--- NOTE | 2017-10-12 13:07 | PN ---
Progress Note (short form) - Note Progress Note: Denies any complaints Vital Signs Period Temp Pulse Resp BP Sys/Lorenzo Pulse Ox Last 24 Hr 97.3 F-98.1 F 75-85 18-20 96-108/53-56 99 PE: Ax3 Neck: Supple, No JVD HEENT: PERRL,EOMI Lungs: CTA CVS: S1S2 Abd: Benign Ext: Left foot dressing Neuro; No focal deficit CMP Sodium 137 mmol/L (136-145) 10/12/17 08:40 Potassium 4.2 mmol/L (3.5-5.1) 10/12/17 08:40 Chloride 101 mmol/L (98-107) 10/12/17 08:40 Carbon Dioxide 29 mmol/L (21-32) 10/12/17 08:40 Anion Gap 7 (8-16) L 10/12/17 08:40 BUN 13 mg/dL (7-18) 10/12/17 08:40 Creatinine 0.9 mg/dL (0.7-1.3) 10/12/17 08:40 Creat Clearance w eGFR > 60 (>60) 10/12/17 08:40 POC Glucometer 196 UNITS (80-120) 10/12/17 05:50 Random Glucose 174 mg/dL (74-106) H D 10/12/17 08:40 Hemoglobin A1c % 10.1 % (4.8-6.0) H D 10/09/17 06:30 Lactic Acid 1.2 mmol/L (0.0-2.0) 10/08/17 12:15 Calcium 9.0 mg/dL (8.5-10.1) 10/12/17 08:40 Phosphorus 4.3 mg/dL (2.5-4.9) D 10/09/17 06:30 Magnesium 1.8 mg/dL (1.8-2.4) 10/09/17 22:00 Total Bilirubin 0.8 mg/dL (0.2-1.0) D 10/12/17 08:40 AST 17 U/L (15-37) D 10/12/17 08:40 ALT 30 U/L (12-78) D 10/12/17 08:40 Alkaline Phosphatase 79 U/L (45-117) 10/12/17 08:40 C-Reactive Protein 4.5 MG/DL (0.00-0.3) H 10/08/17 15:57 Total Protein 7.1 g/dl (6.4-8.2) D 10/12/17 08:40 Albumin 3.7 g/dl (3.4-5.0) D 10/12/17 08:40 Current Medications Generic Name Dose Route Start Last Admin Trade Name Freq PRN Reason Stop Dose Admin Amlodipine Besylate 5 mg 10/09/17 10:00 10/12/17 11:14 Norvasc - PO 5 mg DAILY ADOLFO Administration Atorvastatin Calcium 10 mg 10/09/17 22:00 10/11/17 21:28 Lipitor - PO 10 mg HS ADOLFO Administration Collagenase 1 applic 10/09/17 10:00 10/11/17 16:14 Santyl - TP 1 applic DAILY ADOLFO Administration Enoxaparin Sodium 40 mg 10/09/17 10:00 10/12/17 11:10 Lovenox - SQ 40 mg DAILY ADOLFO Administration Piperacillin Sod/Tazobactam 100 mls @ 200 mls/hr 10/08/17 18:00 10/12/17 11: 10 Sod 4.5 gm/ Dextrose IVPB 200 mls/hr Q8H-IV ADOLFO Administration Vancomycin HCl 1,250 mg/ 250 mls @ 166.667 mls/hr 10/11/17 02:00 10/12/17 02: 22 Dextrose IVPB 166.667 mls/hr BID@0200,1400 ADOLFO Administration Protocol Insulin Aspart 1 vial 10/08/17 23:30 10/11/17 21:30 Novolog Vial Sliding Scale - SQ 2 unit HS ADOLFO Administration Protocol Insulin Aspart 1 vial 10/10/17 16:30 10/12/17 06:07 Novolog Vial Sliding Scale - SQ 4 units TIDAC ADOLFO Administration Protocol Insulin Detemir 22 units 10/11/17 07:00 10/12/17 06:05 Levemir Vial SQ 22 unit DAILY@0700 ADOLFO Administration Lisinopril 10 mg 10/09/17 10:00 10/12/17 11:14 Prinivil PO 10 mg DAILY ADOLFO Administration AP: Left big toe Infection, No Osteo T2DM BGM QACHS Increase levemir to 25 units daily. Novolog SS coverage Add Metformin 500mg BID Abx as per ID f/u in office in one week. To call me at [phone] with any questions about diabetes.
[2017-10-12] MEDS: COLLAGENASE CLOSTRIDIUM HIST. 30 GRAMS TUBE TP SCH (13:38)
[2017-10-12] MEDS ORDERED: SULFAMETHOXAZOLE/TRIMETHOPRIM 800MG/160MG D.S. TABLET PO ONE (13:55)
[2017-10-12] MEDS ORDERED: AMOX TR/POT CLAV 875MG/125MG TABLETS (FP) PO ONE (13:55)
[2017-10-12] MEDS ORDERED: LACTOBACILLUS ACIDOPHILUS 1 EACH TAB (FP) PO ONE (13:56)
[2017-10-12 15:30] VITALS: BP 110/68; PULSE 89; TEMP 97.9
== END 2017-10-12 16:50 | disposition home or self-care (01) | DRG 380 ==
LOC: JER 10:18 → JERBED 14:09 → J7W 16:13
PROVIDERS: ADMIT Hospitalist; ATTEND Nurse Practitioner Family
PROC: 0JBR0ZZ Excision of Left Foot Subcutaneous Tissue and Fascia, Open Approach (ICD-10-PCS; principal; 2017-10-09)
PROC: 0HBRXZZ Excision of Toe Nail, External Approach (ICD-10-PCS; 2017-10-09)
DX: E11.621 Type 2 diabetes mellitus with foot ulcer (principal); I10 Essential (primary) hypertension; J45.909 Unspecified asthma, uncomplicated; E78.5 Hyperlipidemia, unspecified; E11.9 Type 2 diabetes mellitus without complications; F17.200 Nicotine dependence, unspecified, uncomplicated; L97.528 Non-pressure chronic ulcer of other part of left foot with other specified severity; B35.1 Tinea unguium; F12.20 Cannabis dependence, uncomplicated
CPT/HCPCS: 36415; 73630-TC-LT; 73721-LT-TC; 80053; 81003; 81015; 82803; 82962; 83036; 83605; 83735; 84100; 85025; 85610; 85651; 85730; 86140; 86850; 86900; 86901; 87040; 87070; 87077; 87086; 87186; 87205; 93005; 93010; 99283-25; G0480